=== PATIENT | male | born 1960 | race African-American/Black ===

== ENCOUNTER 2017-07-05 04:11 | Inpatient (IN) | payer SELFPAY ==
[2017-07-05 04:38] LABS: #Basophils 0.1 thou/uL (0.0-0.2); #Eosinphils 0.1 thou/uL (0.0-0.7); #Lymphocytes 1.9 thou/uL (1.20-3.40); #Monocytes 0.9 thou/uL (0.11-0.59); #Neutrophils 6.6 thou/uL (1.40-6.50); %Basophils 0.5 % (0.0-1.0); %Eosinophils 0.6 % (0.0-10.0); %Monocytes 9.4 % (0.0-10.0); %Neutrophils 69.5 % (42.0-75.0); Hemoglobin 14.6 g/dL (14.0-18.0); Mean Corpuscular HGB CONC 33.7 g/dL (32.0-36.0); Mean Corpuscular Hemoglobin 32.2 pg (27.0-31.0); Mean Corpuscular Volume 95.4 fl (80.0-94.0); Mean Platelet Volume 6.8 fL (7.4-10.4); Platelet Count 365 thou/uL (130-400); RBC Distribution Width 11.7 % (11.5-14.5); Red Blood Cell (RBC) Count 4.53 mill/uL (4.70-6.10); White Blood Cell (WBC) Count 9.5 thou/uL (4.8-10.8)
[2017-07-05 04:59] LABS: ALT (SGPT) 20 U/L (8-55); AST (SGOT) 25 U/L (5-34); Albumin 4.1 g/dL (3.5-5.0); Alkaline Phosphatase 79 U/L (40-150); Anion Gap 16 mmol/L (10-20); BUN (Urea Nitrogen) 21 mg/dL (8.4-25.7); Bilirubin, Total 0.3 mg/dL (0.2-1.2); CK (CPK) 1277 U/L (30-200); Calc. Creatinine Clearance 0 mL/min (70-130); Calcium 9.7 mg/dL (7.8-10.44); Carbon Dioxide 20 mmol/L (22-29); Chloride 107 mmol/L (98-107); Estimated GFR-MDRD 71; Globulin 3.6 g/dL (2.4-3.5); Glucose 105 mg/dL (70-105); Potassium 4.1 mmol/L (3.5-5.1); Protein, Total 7.7 g/dL (6.0-8.3); Sodium 139 mmol/L (136-145)
[2017-07-05 05:05] LABS: CKMB 3.8 ng/mL (0-6.6); Troponin I 0.064 ng/mL (< 0.028)
[2017-07-05] MEDS ORDERED: Ondansetron HCl/PF 4 MG/2 ML Vial IVP PRN (06:44)
[2017-07-05] MEDS ORDERED: Ondansetron ODT 4 MG TAB SL PRN (06:44)
[2017-07-05 08:04] LABS: Troponin I 0.061 ng/mL (< 0.028)
[2017-07-05] MEDS ORDERED: Acetaminophen 325 MG TAB PO PRN (08:22)
[2017-07-05] MEDS ORDERED: HYDROcodone/Acetaminophen 5/325 mg Tablet PO PRN (08:22)
--- NOTE | 2017-07-05 08:25 | RAD ---
UPRIGHT PORTABLE CHEST 1 VIEW: Date: 07/05/17 HISTORY: 56-year-old male with history of shortness of breath for several days. History of congestive heart fa ilure. COMPARISON: 01/02/17. FINDINGS: Monitor leads overlie the chest. Heart size is within upper range of normal limits. No confluent pneu monia, overt edema, or pleural effusion. IMPRESSION: No significant acute intrathoracic disease. Stable from prior 01/02/17 study. Stable metal opacity in the region of the anterior right chest. POS: CHRISSY
[2017-07-05] MEDS ORDERED: cefTRIAXone\\ROCEPHIN 1 GM in Sodium Chloride 0.9% 100 ML IVPB SCH (08:30)
[2017-07-05] MEDS ORDERED: Aspirin 325 MG TAB PO SCH (09:00)
[2017-07-05 09:04] VITALS: BMI 29.9
[2017-07-05] MEDS: Spironolactone 25 MG TAB PO SCH (09:22)
[2017-07-05] MEDS: Lisinopril 2.5 MG TAB PO SCH (09:22)
[2017-07-05] MEDS: Docusate 100 MG CAP PO SCH ×2 (09:22→20:42)
[2017-07-05] MEDS: cefTRIAXone\\ROCEPHIN 1 GM, Syringe 0.4 ML in Sterile Water 9.6 ML SLOW IVP SCH (09:33)
[2017-07-05] MEDS: Azithromycin 500 MG in Sodium Chloride 0.9% 250 ML 250 ML IVPB SCH (09:34)
[2017-07-05] MEDS: Benzonatate 100 MG CAP PO PRN ×3 (10:01→20:41)
[2017-07-05] MEDS: Diabetic Tussin 200 MG/10 ML UDCUP PO PRN ×3 (10:01→20:41)
[2017-07-05 10:02] LABS: Bilirubin Negative (Negative); Blood, Urine Negative (Negative); Clarity CLEAR (Clear); Glucose, Urine (Dipstick) Negative (Negative); Leukocyte Negative (Negative); Nitrite Negative (Negative); Protein, Urine (Dipstick) Trace mg/dL (Neg-Trace); pH, Urine 5.5 (5.0-9.0)
[2017-07-05 10:04] LABS: Bacteria/HPF None Seen HPF (None Seen); Hyaline Casts/LPF 0-3 HYALINE CAST LPF (0-3 Hyaline); RBC/HPF 0-3 HPF (0-3); Squamous Epithelial 0-3 HPF (0-3); WBC/HPF 0-3 HPF (0-3)
[2017-07-05 10:20] LABS: Amphetamine Not Detected (NotDetected); Barbiturates Screen Not Detected (NotDetected); Benzodiazepine Screen Not Detected (NotDetected); Cocaine Metabolite Screen Detected (NotDetected); Medtox Control Line Valid? VALID (VALID); Medtox Reader # READER 4; Methadone Not Detected (NotDetected); Methamphetamine Not Detected (NotDetected); Opiate Screen Not Detected (NotDetected); Oxycodone Screen Not Detected (NotDetected); Phencyclidine (PCP) Not Detected (NotDetected); THC/Cannabinoid Screen Detected (NotDetected); Tricyclic Screen Not Detected (NotDetected)
[2017-07-05 11:20] LABS: Troponin I 0.063 ng/mL (< 0.028)
--- NOTE | 2017-07-05 14:21 | CON ---
DATE OF CONSULTATION: 07/05/2017 REASON FOR CONSULTATION: Acute on chronic systolic heart failure and cocaine use. PRIMARY FIREMAN: Dr. Hardik Lim is the primary body press operator. HISTORY OF PRESENT ILLNESS: Mr. Mendes is a 56-year-old gentleman who recently presented with incre ased shortness of breath. He states he has been noted over the last week. He has had PND and orthop hugo as well as lower extremity edema. No chest pain or pressure noted. His last echo noted in the h ospital was had an EF of 20% to 25%. PAST MEDICAL HISTORY: Hypertension, hyperlipidemia, nonischemic cardiomyopathy. ALLERGIES: None. CURRENT MEDICATIONS: None. MEDICATIONS: Clonidine, atenolol, Lasix, lisinopril. REVIEW OF SYSTEMS: Ten-point review of systems is reviewed and is as above negative. PHYSICAL EXAMINATION: VITAL SIGNS: Blood pressure 149/91, pulse 92, temperature 98.6. GENERAL: Patient is a pleasant male who is in no acute distress. The patient appears his stated age. VITAL SIGNS: NEUROLOGIC: The patient is alert and oriented times 3 with no focal neurologic deficits. HEENT: Sclerae without icterus. Mouth has moist mucous membranes with normal pallor. NECK: No JVD. Carotid upstroke brisk. No bruits bilaterally. LUNGS: Crackles noted bilaterally. BACK: No scoliosis or kyphosis. CARDIAC: Regular rate and rhythm with normal S1 and S2. No S3 or S4 noted. No significant rubs, murmurs, thrills, or gallops noted throughout the precordium. PMI is not displaced. There is no parasternal heave. ABDOMEN: Soft, nontender, nondistended. No peritoneal signs present. No hepatosplenomegaly. No abnormal striae. EXTREMITIES: 2+ femoral and 2+ dorsalis pedis pulses. No cyanosis, clubbing, or edema. SKIN: No gross abnormalities. PERTINENT LABORATORY DATA: Hemoglobin 14.6, CO2 of 20, CK-MB of 3.8, troponin 0.064. BNP 122. IMPRESSION: 1. Acute on chronic systolic heart failure. 2. Cocaine use. RECOMMENDATIONS: Mr. Ramírez BNP is not markedly elevated, but his symptoms suggest heart failure. We would continue with IV Lasix. We would discontinue aspirin. Continue with lisinopril and luisa nolactone. I also discussed ICD with Mr. Mendes. He is somewhat receptor. We will have further di scussions tomorrow.
[2017-07-05] MEDS: Furosemide 20 MG/2 ML VIAL SLOW IVP SCH (15:06)
--- NOTE | 2017-07-05 19:20 | HP ---
CHIEF COMPLAINT: Shortness of breath and chest pain. HISTORY OF PRESENT ILLNESS: This is a 56-year-old pleasant gentleman who came into the hospital afte r doing some cocaine with shortness of breath and some chest pain. The patient says that he has been coughing on and off for the whole week, which has gotten worse. Shortness of breath has gotten wors e too. He has a history of congestive heart failure. Denies any asthma. The patient came into the hospital for further evaluation and treatment of that. PAST MEDICAL HISTORY: Significant for hyperlipidemia, high cholesterol, hypertension, coronary arter y disease, congestive heart failure with ejection fraction of 20%. PAST SURGICAL HISTORY: Four pins in the right hand. PSYCHIATRIC HISTORY: No previous psychiatric history. SOCIAL HISTORY: Denies alcohol use. The patient currently uses drugs. He smokes cocaine. No histo ry of tobacco use. ALLERGIES: No known drug allergies. FAMILY HISTORY: Negative for diabetes and hypertension. MEDICATIONS: Include lisinopril 2.5 p.o. daily and Lasix 40 mg p.o. daily. REVIEW OF SYSTEMS: Significant for shortness of breath, some chest pain, otherwise no fever, no chil ls, no headache, no eye pain, no hearing loss, no latencies. Positive for cough without any sputum p roduction. No diarrhea, dysuria, or polyuria. No memory or mood changes, no neck pain. PHYSICAL EXAMINATION: VITAL SIGNS: Blood pressure is 141/85, pulse 102, breathing comfortably on room air. GENERAL: The patient is lying in bed in no apparent distress. When he came to the emergency room; h owever, his O2 sats were 94% on room air and he was tachypneic. HEENT: Atraumatic, normocephalic. Pupils equal, round, react to light. Extraoculars movements inta ct. Mucous membranes moist. NECK: No JVD. LUNGS: Breath sounds heard, dependent crackles heard some coarse breath sounds. CARDIOVASCULAR: S1, S2 normal. No murmurs or gallops appreciated. ABDOMEN: Soft, obese. EXTREMITIES: No cyanosis, clubbing, edema. Distal pulses present. NEUROLOGIC: . LABORATORY DATA: Ejection fraction in the past was 20%. CK is 1277, troponin 0.061. ASSESSMENT AND PLAN: 1. Chest pain, rule out acute coronary syndrome. We will trend troponins. Consult Cardiology. Moriah estrada for status elevated. I will repeat echocardiogram. 2. Rhabdomyolysis with elevated CK. We will follow CK this hospital stay. 3. Cocaine use. We will ask consult the patient and will do the need for. 4. Cough with chest x-ray suggestive of pneumonia. We will put the patient on pneumonia protocol, t reat with IV antibiotics. Check for the flu and do sputum culture. We will give symptomatic treatme nt for the cough. 5. Hypertension, stable. 6. Hyperlipidemia, stable. I will follow the patient and make recommendations as the clinical cours e evolves.
[2017-07-06 05:29] LABS: #Basophils 0.1 thou/uL (0.0-0.2); #Eosinphils 0.1 thou/uL (0.0-0.7); #Lymphocytes 2.6 thou/uL (1.20-3.40); #Monocytes 0.9 thou/uL (0.11-0.59); #Neutrophils 4.5 thou/uL (1.40-6.50); %Basophils 1.1 % (0.0-1.0); %Eosinophils 1.3 % (0.0-10.0); %Lymphocytes 31.9 % (21.0-51.0); %Neutrophils 54.7 % (42.0-75.0); Hemoglobin 14.5 g/dL (14.0-18.0); Mean Corpuscular HGB CONC 33.2 g/dL (32.0-36.0); Mean Corpuscular Hemoglobin 31.7 pg (27.0-31.0); Mean Corpuscular Volume 95.5 fl (80.0-94.0); Mean Platelet Volume 6.7 fL (7.4-10.4); Platelet Count 357 thou/uL (130-400); RBC Distribution Width 11.7 % (11.5-14.5); Red Blood Cell (RBC) Count 4.56 mill/uL (4.70-6.10); White Blood Cell (WBC) Count 8.2 thou/uL (4.8-10.8)
[2017-07-06 05:40] LABS: Anion Gap 12 mmol/L (10-20); BUN (Urea Nitrogen) 24 mg/dL (8.4-25.7); CK (CPK) 811 U/L (30-200); Calc. Creatinine Clearance 86 mL/min (70-130); Calcium 10.1 mg/dL (7.8-10.44); Carbon Dioxide 26 mmol/L (22-29); Chloride 106 mmol/L (98-107); Estimated GFR-MDRD 69; Glucose 111 mg/dL (70-105); Potassium 4.4 mmol/L (3.5-5.1); Sodium 140 mmol/L (136-145)
[2017-07-06] MEDS: Furosemide 20 MG/2 ML VIAL SLOW IVP SCH (06:00)
[2017-07-06] MEDS: Diabetic Tussin 200 MG/10 ML UDCUP PO PRN (06:24)
[2017-07-06] MEDS: Benzonatate 100 MG CAP PO PRN (06:24)
[2017-07-06] MEDS: Lisinopril 2.5 MG TAB PO SCH (08:47)
[2017-07-06] MEDS: Spironolactone 25 MG TAB PO SCH (08:47)
[2017-07-06] MEDS: Azithromycin 500 MG in Sodium Chloride 0.9% 250 ML 250 ML IVPB SCH (09:30)
[2017-07-06] MEDS: Docusate 100 MG CAP PO SCH ×2 (09:53→20:16)
[2017-07-06] MEDS: cefTRIAXone\\ROCEPHIN 1 GM, Syringe 0.4 ML in Sterile Water 9.6 ML SLOW IVP SCH (09:53)
--- NOTE | 2017-07-06 12:22 | PDOC.PN ---
- Subjective Encounter Start Date: 07/06/17 Encounter Start Time: 12:21 Patient seen and examined. No new complaints. No overnight events - Objective MAR Reviewed: Yes Vital Signs & Weight: Vital Signs (12 hours) Temp Pulse Resp BP BP Pulse Ox 07/06/17 08:47 62 115/65 07/06/17 07:52 97.3 F L 62 16 115/65 96 07/06/17 05:59 51 L 16 121/80 07/06/17 04:00 97.9 F 97 20 133/67 93 L Weight Weight 208 lb 6.4 oz I&O: 07/05/17 07/06/17 07/07/17 06:59 06:59 06:59 Intake Total 1860 Output Total 420 Balance 1440 Result Diagrams: 07/06/17 05:03 07/06/17 05:04 Phys Exam - Physical Examination Constitutional: NAD HEENT: PERRLA Neck: no JVD Respiratory: no rales Cardiovascular: no significant murmur Gastrointestinal: no distention Musculoskeletal: pulses present Neurological: moves all 4 limbs Psychiatric: A&O x 3 Dx/Plan (1) Polysubstance abuse Code(s): F19.10 - OTHER PSYCHOACTIVE SUBSTANCE ABUSE, UNCOMPLICATED Status: Acute (2) Systolic CHF, acute on chronic Code(s): I50.23 - ACUTE ON CHRONIC SYSTOLIC (CONGESTIVE) HEART FAILURE Status : Acute (3) CKD (chronic kidney disease) stage 2, GFR 60-89 ml/min Code(s): N18.2 - CHRONIC KIDNEY DISEASE, STAGE 2 (MILD) Status: Chronic (4) H/O: HTN (hypertension) Code(s): Z86.79 - PERSONAL HISTORY OF OTHER DISEASES OF THE CIRCULATORY SYSTEM Status: Chronic - Plan * doing good * continue diuresis * f/u dr sanz plan for icd
[2017-07-06] MEDS: Furosemide 40 MG/4 ML VIAL SLOW IVP SCH (12:30)
[2017-07-07 05:15] LABS: #Eosinphils 0.1 thou/uL (0.0-0.7); #Lymphocytes 2.5 thou/uL (1.20-3.40); #Neutrophils 5.2 thou/uL (1.40-6.50); %Basophils 0.6 % (0.0-1.0); %Lymphocytes 27.9 % (21.0-51.0); %Monocytes 11.1 % (0.0-10.0); %Neutrophils 59.5 % (42.0-75.0); Hemoglobin 14.4 g/dL (14.0-18.0); Mean Corpuscular HGB CONC 34.9 g/dL (32.0-36.0); Mean Corpuscular Hemoglobin 33.2 pg (27.0-31.0); Mean Corpuscular Volume 94.9 fl (80.0-94.0); Mean Platelet Volume 7.1 fL (7.4-10.4); Platelet Count 328 thou/uL (130-400); RBC Distribution Width 11.7 % (11.5-14.5); Red Blood Cell (RBC) Count 4.33 mill/uL (4.70-6.10); White Blood Cell (WBC) Count 8.8 thou/uL (4.8-10.8)
[2017-07-07 05:30] LABS: Anion Gap 14 mmol/L (10-20); BUN (Urea Nitrogen) 32 mg/dL (8.4-25.7); CK (CPK) 624 U/L (30-200); Calc. Creatinine Clearance 77 mL/min (70-130); Calcium 9.9 mg/dL (7.8-10.44); Carbon Dioxide 21 mmol/L (22-29); Chloride 109 mmol/L (98-107); Estimated GFR-MDRD 61; Glucose 141 mg/dL (70-105); Sodium 140 mmol/L (136-145)
[2017-07-07] MEDS: Furosemide 40 MG/4 ML VIAL SLOW IVP SCH ×2 (05:38→12:47)
[2017-07-07] MEDS: cefTRIAXone\\ROCEPHIN 1 GM, Syringe 0.4 ML in Sterile Water 9.6 ML SLOW IVP SCH (08:56)
[2017-07-07] MEDS: Lisinopril 2.5 MG TAB PO SCH (08:57)
[2017-07-07] MEDS: Spironolactone 25 MG TAB PO SCH (08:57)
[2017-07-07] MEDS: Docusate 100 MG CAP PO SCH ×2 (08:57→20:09)
[2017-07-07] MEDS: Diabetic Tussin 200 MG/10 ML UDCUP PO PRN ×2 (09:04→20:09)
[2017-07-07] MEDS: Azithromycin 500 MG in Sodium Chloride 0.9% 250 ML 250 ML IVPB SCH (10:38)
--- NOTE | 2017-07-07 14:29 | PDOC.CTH ---
<Agueda Scruggs - Last Filed: 07/07/17 14:31> Cardiology Progress Note - Subjective The pt seen and examined. No overnight events. No cardiac complaints. No distress or SOB with RA. No edema - Objective Vital Signs Temp Pulse Resp BP BP Pulse Ox 07/07/17 11:45 98.5 F 100 18 110/71 96 07/07/17 08:50 98.5 F 100 18 97 07/07/17 08:48 97.5 F L 94 18 131/74 97 07/07/17 04:00 107 H 18 127/65 Weight 203 lb 5 oz 07/06/17 07/07/17 07/08/17 06:59 06:59 06:59 Intake Total 1860 960 Output Total 420 1000 Balance 1440 -40 - Physical Examination General/Neuro: alert & oriented x3 Neck: no JVD present Lungs: CTA Heart: RRR Abdomen: soft Extremities: other: (No edema) - Telemetry Telemetry Rhythm: SR 90s - Labs Result Diagrams: 07/07/17 04:49 07/07/17 04:49 Troponin/CKMB CK-MB (CK-2) 3.8 ng/mL (0-6.6) 07/05/17 04:20 Troponin I 0.063 ng/mL (< 0.028) H 07/05/17 10:24 - Assessment/Plan 1. Acute on Chronic Systolic HF - Echo on 07/05/17 showed EF 25-30%, Grade II diastolic dysfunction, mild-mod MR and mild TR; on Lasix and WANDA; start low dose of Coreg; Possible AICD placement tomorrow; cont. monitor 2. HTN - stable with current medication 3. Acute on CKD - change Lasix 40mg BID IV to PO; cont. monitor 4. Polysubstance abuse - MAR reviewed * Possible AICD placement tomorrow by Dr Mast Review of Systems - Review of Systems Constitutional: reports: no symptoms reported EENTM: reports: no symptoms reported Respiratory: reports: no symptoms reported Cardiac (ROS): reports: no symptoms reported ABD/GI: reports: no symptoms reported : reports: no symptoms reported Musculoskeletal: reports: no symptoms reported Skin: reports: no symptoms reported <Tonya Lim - Last Filed: 07/07/17 18:39> Cardiology Progress Note - Objective Vital Signs Temp Pulse Pulse Pulse Resp BP BP 07/07/17 15:40 98 F 115 H 20 07/07/17 11:45 98.5 F 100 18 07/07/17 11:03 107 H 111 H 116/78 116/55 L 07/07/17 08:50 98.5 F 100 18 07/07/17 08:48 97.5 F L 94 18 BP Pulse Ox Pulse Ox Pulse Ox 07/07/17 15:40 98/56 L 95 07/07/17 11:45 110/71 96 07/07/17 11:03 96 98 07/07/17 08:50 97 07/07/17 08:48 131/74 97 Weight 203 lb 5 oz 07/06/17 07/07/17 07/08/17 06:59 06:59 06:59 Intake Total 1860 960 840 Output Total 420 1000 2125 Balance 1440 -40 -1285 - Labs Result Diagrams: 07/07/17 04:49 07/07/17 04:49 Troponin/CKMB CK-MB (CK-2) 3.8 ng/mL (0-6.6) 07/05/17 04:20 Troponin I 0.063 ng/mL (< 0.028) H 07/05/17 10:24 - Assessment/Plan Pt. seen and eval. by me. I saw this pt. 4 years ago and he has not followed up since that time. He was advised a Life-Vest at that time but I do not think he agreed to it. He continues to abuse cocaine every other day per his own admission. He is not a good candidate for an AICD since he is noncompliant. At this time he has not been seen by EP as far as I can tell. I believe it would be best to apply a Life Vest and see if the pt will return for follow up. He needs to be compliant with medications and see if the EF will improve. If not better in 90 days then an AICD would be reasonable in my opinion. I agree with the remainder of the A/P by the OPERATIONS DISPATCHER.
--- NOTE | 2017-07-07 17:30 | PDOC.PN ---
- Subjective Encounter Start Date: 07/07/17 Encounter Start Time: 17:29 Patient seen and examined. No new complaints. No overnight events - Objective MAR Reviewed: Yes Vital Signs & Weight: Vital Signs (12 hours) Temp Pulse Pulse Pulse Resp BP BP 07/07/17 15:40 98 F 115 H 20 07/07/17 11:45 98.5 F 100 18 07/07/17 11:03 107 H 111 H 116/78 116/55 L 07/07/17 08:50 98.5 F 100 18 07/07/17 08:48 97.5 F L 94 18 BP Pulse Ox Pulse Ox Pulse Ox 07/07/17 15:40 98/56 L 95 07/07/17 11:45 110/71 96 07/07/17 11:03 96 98 07/07/17 08:50 97 07/07/17 08:48 131/74 97 Weight Weight 203 lb 5 oz I&O: 07/06/17 07/07/17 07/08/17 06:59 06:59 06:59 Intake Total 1860 960 Output Total 420 1000 Balance 1440 -40 Result Diagrams: 07/07/17 04:49 07/07/17 04:49 Phys Exam - Physical Examination Constitutional: NAD HEENT: PERRLA Neck: no JVD Respiratory: no wheezing Cardiovascular: no significant murmur Gastrointestinal: non-tender Musculoskeletal: pulses present Neurological: moves all 4 limbs Psychiatric: A&O x 3 Dx/Plan (1) Polysubstance abuse Code(s): F19.10 - OTHER PSYCHOACTIVE SUBSTANCE ABUSE, UNCOMPLICATED Status: Acute (2) Systolic CHF, acute on chronic Code(s): I50.23 - ACUTE ON CHRONIC SYSTOLIC (CONGESTIVE) HEART FAILURE Status : Acute (3) CKD (chronic kidney disease) stage 2, GFR 60-89 ml/min Code(s): N18.2 - CHRONIC KIDNEY DISEASE, STAGE 2 (MILD) Status: Chronic (4) H/O: HTN (hypertension) Code(s): Z86.79 - PERSONAL HISTORY OF OTHER DISEASES OF THE CIRCULATORY SYSTEM Status: Chronic - Plan * 1. Acute on Chronic Systolic HF - Echo on 07/05/17 showed EF 25-30%, Grade II diastolic dysfunction, mild-mod MR and mild TR; on Lasix and WANDA; start low dose of Coreg; Possible AICD placement tomorrow; cont. monitor 2. HTN - stable with current medication 3. Acute on CKD - change Lasix 40mg BID IV to PO; cont. monitor 4. Polysubstance abuse -
[2017-07-07] MEDS: Carvedilol 3.125 MG TAB PO SCH (17:40)
--- NOTE | 2017-07-07 23:06 | CON ---
ELECTROPHYSIOLOGY CONSULTATION REPORT DATE OF CONSULTATION: 07/07/2017 REFERRING PHYSICIAN: Osmani Brown M.D. I am seeing Mr. Mendes at [facility] as an electrophysiology advanced manufacturing consultant for the following p roblems: 1. Chronic systolic congestive heart failure with nonischemic cardiomyopathy. A. Remote history of reduced LVEF at baseline echocardiogram in 11/29/2014, LVEF 20% to 25%. Nuclea r stress test from 06/06/2013 with LVEF of 20% to 25% without ischemia or scar and most recent echo t his admission on 07/05/2017 with LVEF of 25% to 30%. 2. Prior history of LifeVest use. 3. History of cocaine use. 4. Nonsustained ventricular arrhythmias. 5. Coronary artery receptors. A. Hypertension. B. Hyperlipidemia. ALLERGIES: None noted. MEDICATIONS AT HOME: Including lisinopril and furosemide. SUBJECTIVE: Mr. Mendes is here with progressive dyspnea. He also had some chest pain, although it was associated with cocaine use. He had some cough, which was getting worse and he was evaluated in the hospital. Hence his chest pains, Cardiology was consulted and subsequently I was consulted for f mehnazther EP evaluation. Currently, he is not having any chest pains. No PND, orthopnea. No lower extremity edema. No fever , chills or cough. No stroke-like symptoms. No neurological deficits. REVIEW OF SYSTEMS: The rest of the 12-point review of systems otherwise unremarkable. PAST MEDICAL HISTORY: As above. SOCIAL HISTORY: The patient is active cocaine user. He uses marijuana. FAMILY HISTORY: Noncontributory. OBJECTIVE DATA: VITAL SIGNS: Blood pressure is 116/55, heart rate 107, respirations 18, temperature 98.5 degrees Fah renheit. GENERAL: He is alert and oriented man in no apparent distress. NECK: Supple. Jugular veins are not distended. CHEST: Coarse without crackles. CARDIOVASCULAR: Heart sounds are regular to rate and rhythm. No murmur or gallop. ABDOMEN: Benign. Bowel sounds positive. EXTREMITIES: Lower extremities without edema, clubbing or cyanosis. DATABASE: EKGs reviewed reveals sinus rhythm with a narrow complex QRS noted. ASSESSMENT AND PLAN: Mr. Mendes is a 56-year-old man with history of congestive heart failure and n onischemic cardiomyopathy, this could be possibly related to cocaine use. The left ventricular eject ion fraction is persistently low. He has elevated ventricular arrhythmia risk. I discussed with him the option of ICD. At the same time, I also noted his history of cocaine use. Further discussion r egarding this is necessary. He clearly needs to quit cocaine use to qualify for ICD implant. Risks and benefits detailed. I will reevaluate him tomorrow after discussion with Dr. Lim for treating ph ysician.
[2017-07-08] MEDS ORDERED: Furosemide 20 MG TAB PO SCH (09:00)
[2017-07-08] MEDS: Lisinopril 2.5 MG TAB PO SCH (09:30)
[2017-07-08] MEDS: Spironolactone 25 MG TAB PO SCH (09:31)
[2017-07-08] MEDS: Azithromycin 500 MG in Sodium Chloride 0.9% 250 ML 250 ML IVPB SCH (09:32)
[2017-07-08] MEDS: Carvedilol 3.125 MG TAB PO SCH (09:32)
[2017-07-08] MEDS: Docusate 100 MG CAP PO SCH (09:32)
[2017-07-08 10:15] VITALS: TEMP 98.1
[2017-07-08] MEDS: cefTRIAXone\\ROCEPHIN 1 GM, Syringe 0.4 ML in Sterile Water 9.6 ML SLOW IVP SCH (10:54)
--- NOTE | 2017-07-08 11:34 | PDOC.CTH ---
Cardiology Progress Note - Subjective Pt. seen and eval. No cardiac complaints. Cough is better. He does not want to wear the Life-Vest and may not be compliant if he did agree to wear it. He wants to continue medical treatment and see if the EF improves. - Objective Vital Signs Temp Pulse Resp BP BP BP Pulse Ox 07/08/17 09:30 83 109/62 07/08/17 08:00 98.1 F 105 H 17 109/62 96 07/08/17 04:00 97.8 F 83 21 H 114/53 L 95 Weight 206 lb 07/07/17 07/08/17 07/09/17 06:59 06:59 06:59 Intake Total 960 840 240 Output Total 1000 2125 Balance -40 -1285 240 - Physical Examination General/Neuro: alert & oriented x3 Neck: carotid US brisk Lungs: CTA Heart: RRR Abdomen: NT/ND, soft - Labs Result Diagrams: 07/07/17 04:49 07/07/17 04:49 Troponin/CKMB CK-MB (CK-2) 3.8 ng/mL (0-6.6) 07/05/17 04:20 Troponin I 0.063 ng/mL (< 0.028) H 07/05/17 10:24 - Assessment/Plan . Acute on Chronic Systolic HF - Echo on 07/05/17 showed EF 25-30%, nonischemic CMY, Grade II diastolic dysfunction, mild-mod MR and mild TR; on Lasix and WANDA; low dose of Coreg; 2. HTN - stable with current medication 3. Acute on CKD - cont. Lasix 40mg BID PO; cont. monitor 4. Polysubstance abuse -He continues to use cocaine on a routine basis. Will need to be careful with the betablockers with the continued cocaine use. 5. noncompliant with meds and followup. i discussed a Life-Vest with the pt. he does not want to wear this. He says that he will try the medications. if the EF improves with medical treatment then I will continue that. If the EF does not improve after 90 days then he would be a candidate for an AICD if he stops cocaine. i will be happy to see him in the clinic in the next 2-3 weeks or he can follow up in the CHF clinic. 6. cough: Improved. MARSHA reviewed
--- NOTE | 2017-07-08 11:57 | PDOC.PN ---
- Subjective Encounter Start Date: 07/08/17 Encounter Start Time: 11:54 Patient seen and examined. No new complaints. No overnight events - Objective MAR Reviewed: Yes Vital Signs & Weight: Vital Signs (12 hours) Temp Pulse Resp BP BP BP Pulse Ox 07/08/17 09:30 83 109/62 07/08/17 08:00 98.1 F 105 H 17 109/62 96 07/08/17 04:00 97.8 F 83 21 H 114/53 L 95 Weight Weight 206 lb I&O: 07/07/17 07/08/17 07/09/17 06:59 06:59 06:59 Intake Total 960 840 240 Output Total 1000 2125 Balance -40 -1285 240 Result Diagrams: 07/07/17 04:49 07/07/17 04:49 Phys Exam - Physical Examination Constitutional: NAD HEENT: PERRLA Neck: no JVD Respiratory: no wheezing Cardiovascular: no significant murmur Gastrointestinal: non-tender Musculoskeletal: pulses present Neurological: moves all 4 limbs Psychiatric: A&O x 3 Dx/Plan (1) Polysubstance abuse Code(s): F19.10 - OTHER PSYCHOACTIVE SUBSTANCE ABUSE, UNCOMPLICATED Status: Acute (2) Systolic CHF, acute on chronic Code(s): I50.23 - ACUTE ON CHRONIC SYSTOLIC (CONGESTIVE) HEART FAILURE Status : Acute (3) CKD (chronic kidney disease) stage 2, GFR 60-89 ml/min Code(s): N18.2 - CHRONIC KIDNEY DISEASE, STAGE 2 (MILD) Status: Chronic (4) H/O: HTN (hypertension) Code(s): Z86.79 - PERSONAL HISTORY OF OTHER DISEASES OF THE CIRCULATORY SYSTEM Status: Chronic - Plan doing well refused life vest no icd till he stops using cocaine d/c with f/u with dr ayala
[2017-07-08 15:44] VITALS: BP 127/63
--- NOTE | 2017-07-08 15:53 | PRG ---
DATE OF SERVICE: 07/08/2017 ELECTROPHYSIOLOGY FOLLOWUP NOTE REFERRING PHYSICIAN: Dr. Lim. SUBJECTIVE: Mr. Mendes seems doing well today, no further complaints of dyspnea, palpitations, or chest pains noted. OBJECTIVE: VITAL SIGNS: Blood pressure is 114/53, heart rate 83, respiration is 21, temperature 97.8 degrees Fahrenheit. GENERAL: He is alert and oriented man, in no apparent distress. NECK: Supple. Jugular veins not distended. CHEST: Coarse, no crackles. CARDIOVASCULAR: Heart sounds are regular to rate and rhythm. No murmur or gallop. ABDOMEN: Benign. Bowel sounds positive. EXTREMITIES: Lower extremities without edema, clubbing or cyanosis. DATABASE: Telemetry strips reviewed revealing sinus rhythm, occasional PVCs. ASSESSMENT AND PLAN: Mr. Mendes is a 56-year-old man with prior history of congestive heart failure, nonischemic cardiomyopathy and chronic cocaine abuse. He has had poor compliance with medical therapy. I discussed the case with Dr. Lim, her usual treating physician. We agreed that hence the active documented drug abuse at this point, he clearly does not qualify for a prophylactic ICD implant. On the other hand, plans are to resume standard medical therapy. He has refused LifeVest in the past. I will see him back in the office as per Dr. Lim if felt that his compliance improves and quits drug abuse. Thank you. MARII
--- NOTE | 2017-07-08 23:06 | DIS ---
DATE OF ADMISSION: 07/05/2017 DATE OF DISCHARGE: 07/08/2017 DISCHARGE DIAGNOSES: 1. Acute on chronic systolic congestive heart failure with ejection fraction of 25%. 2. Cocaine use. 3. Hyperlipidemia. 4. Hypertension. 5. Coronary artery disease. 6. Rhabdomyolysis. 7. The patient also complained of chest pain. DISCHARGE MEDICATIONS: Include Coreg 3.125 p.o. b.i.d., aspirin 81 mg p.o. daily, lisinopril 2.5 p.o . daily, spironolactone 12.5 p.o. daily and Lasix 40 mg p.o. b.i.d. in addition to other home medicat ions. CONSULTANTS ON THE CASE: Cardiology. BRIEF HOSPITAL COURSE: This is a 56-year-old pleasant gentleman who came in with systolic congestive heart failure exacerbation getting shortness of breath because of cocaine use and noncompliance wit h medication. Cardiology was consulted. They did an echo which showed EF of 20%. Dr. Mast was also consulted for possible ICD placement, evaluated the patient and said that patient has to be cocaine free before ICD can be implanted. The patient has refused LifeVest for now, he is medically optimize d, he is no longer short of breath, and he is doing well. He is asked to stop using cocaine and foll ow up with Dr. Lim as an outpatient. He is right now medically stable to be discharged. He is aske d to come back to the emergency room in case symptoms recur. Total time for this discharge took 35 minutes.
--- NOTE | 2017-07-19 19:59 | EKG ---
Test Reason : Blood Pressure : / mmHG Vent. Rate : 106 BPM Atrial Rate : 106 BPM P-R Int : 138 ms QRS Dur : 114 ms QT Int : 370 ms P-R-T Axes : 034 057 081 degrees QTc Int : 491 ms Sinus tachycardia with frequent Premature ventricular complexes Left atrial enlargement T wave abnormality, consider lateral ischemia Abnormal ECG Confirmed by REECE VERAS, PAZ Samaniego ([id number]), editor school photograph JASON SUGGS ([id number]) on 07/19/2017 7:59:07 PM Referred By: Confirmed By:PAZ NEWELL MD
== END 2017-07-08 14:20 | disposition home or self-care (01) | DRG 292 ==
LOC: ERS 04:11 → 2NO 06:33
PROVIDERS: ADMIT Internal Medicine; ATTEND Internal Medicine
DX: I11.0 Hypertensive heart disease with heart failure (principal); M62.82 Rhabdomyolysis; N17.9 Acute kidney failure, unspecified; I08.1 Rheumatic disorders of both mitral and tricuspid valves; I50.23 Acute on chronic systolic (congestive) heart failure; E78.5 Hyperlipidemia, unspecified; F14.10 Cocaine abuse, uncomplicated; I25.10 Atherosclerotic heart disease of native coronary artery without angina pectoris; R07.9 Chest pain, unspecified; Z91.14 Patient's other noncompliance with medication regimen; I25.5 Ischemic cardiomyopathy
CPT/HCPCS: 36415; 71045; 80048; 80053; 80306; 81001; 82550; 82553; 83880; 84484; 85025; 87040; 87070; 87205; 87804; 93005; 93306; 93798; 94640; 94760; A4216; J0456; J0696; J1940; J7050; J7620

== ENCOUNTER 2018-04-04 16:21 | Observation (INO) | payer SELFPAY ==
[2018-04-04] MEDS ORDERED: Aspirin 325 MG TAB ONE (17:15)
[2018-04-04 18:16] LABS: Troponin I 0.011 ng/mL (< 0.028)
[2018-04-04 18:39] VITALS: BMI 28.4
[2018-04-04] MEDS ORDERED: Ondansetron HCl/PF 4 MG/2 ML Vial IVP PRN (18:51)
[2018-04-04] MEDS ORDERED: Ondansetron ODT 4 MG TAB SL PRN (18:51)
[2018-04-04] MEDS ORDERED: Acetaminophen 325 MG TAB PO PRN (18:51)
[2018-04-04 20:46] LABS: Troponin I 0.013 ng/mL (< 0.028)
--- NOTE | 2018-04-04 20:51 | HP ---
CHIEF COMPLAINT: Shortness of breath. HISTORY OF PRESENT ILLNESS: Patient is a 57-year-old male who was admitted here back in June. At that time, the patient had some dyspnea. He was worked up and had an echocardiogram which revealed an ejection fraction of around 20%-25%. The patient had been actively using cocaine and therefore wa s not a candidate to have an AICD placement at the time and he also reports that he also had refused at that time to wear the LifeVest. The patient was on lisinopril and Lasix; however, had been incarc erated and has not been able to get access to his usual medications. Over the last 3 days, he has re ported some heaviness in his chest as well as dyspnea on exertion with even trying to walk across the length of himself. He therefore presented to the emergency department today. He initially presente d at [facility]. There, he was found to have evidence of congestive heart failure and was given 80 mg of IV Lasix. He reports that he has voided significantly and is already starting to feel signific antly better. PAST MEDICAL HISTORY: As noted above, significant for the cardiomyopathy which is presumably related to the cocaine use. EF was 20%-25%. He has history of hypertension, hyperlipidemia and coronary ar chan disease, although I do not know whether that has been confirmed. PAST SURGICAL HISTORY: Has four pins in his right hand. SOCIAL HISTORY: The patient reported that he did not use any drugs in months. ALLERGIES: None. FAMILY HISTORY: Negative for coronary disease, diabetes or hypertension. REVIEW OF SYSTEMS: The patient reports that he has had some cough and some mild frothy sputum produc tion. No fevers or chills and otherwise remainder of a 10-system review was unremarkable except for those things mentioned in the history of present illness. CURRENT MEDICATIONS: Lisinopril 2.5 mg 1 p.o. b.i.d. and Lasix 40 mg 1 p.o. q.a.m. PHYSICAL EXAMINATION: GENERAL APPEARANCE: Age appropriate male. He is in no distress. He is awake, alert, oriented, plea kalyan, cooperative, appears quite comfortable. HEENT: PERRL. No OP lesions. NECK: Supple and symmetric. CARDIOVASCULAR: Regular rate and rhythm without murmurs, gallops or rubs. LUNGS: Clear to auscultation bilaterally with good chest wall expansion and air exchange. ABDOMEN: Soft, nontender, nondistended, positive bowel sounds. No masses or organomegaly. EXTREMITIES: Warm and dry. LABORATORY DATA AND IMAGING DATA: White count 5.2, hemoglobin 14.3, platelets 285 monocytes 11.8, eo sinophils 1.1, basophils 2.1. Sodium 142, potassium 4.8, chloride 110, CO2 is 21, BUN 19, creatinine is 1.18. BNP 1329. Troponin 0.18 and subsequent 0.011. Chest x-ray, mild cardiomegaly with bilate ral vascular congestion. IMPRESSION AND PLAN: 1. Decompensated systolic congestive heart failure. The patient has an ejection fraction of 20%-25% . He was incarcerated and somehow got off of his medications there. He has been bonded it out and marixa manriquez is now here in the hospital and has received 80 mg of IV Lasix through the emergency department, he is diuresed and is already feeling some better. We will keep him on telemetry tonight. Continue to check the serial enzymes for his underlying chest pressure, which I suspect is only related to the p ulmonary edema. If he does well overnight, anticipate we will be able to discharge him to home with his usual home medications to have outpatient Cardiology followup. 2. Cardiomyopathy. The patient was not previously a candidate for the AICD because of his cocaine u se. He has been off of that for a while and he will need to consider following up with Cardiology to consider whether he is a candidate at this time or not. We will also discuss the LifeVest again wit h him prior to discharge. 3. Hypertension. We will resume his usual lisinopril dose.
[2018-04-05 05:15] LABS: Anion Gap 13 mmol/L (10-20); BUN (Urea Nitrogen) 22 mg/dL (8.4-25.7); Calc. Creatinine Clearance 92 mL/min (70-130); Carbon Dioxide 23 mmol/L (22-29); Chloride 108 mmol/L (98-107); Estimated GFR-MDRD 80; Glucose 84 mg/dL (70-105); Potassium 3.6 mmol/L (3.5-5.1); Sodium 140 mmol/L (136-145)
[2018-04-05] MEDS ORDERED: Furosemide 40 MG/4 ML VIAL SLOW IVP SCH (08:45)
--- NOTE | 2018-04-05 08:47 | PDOC.PN ---
- Subjective Encounter Start Date: 04/05/18 Encounter Start Time: 08:30 Subjective: follow up for new admission yesterday pm -: for CHF exacerbation/dyspnea - Objective Resuscitation Status: Resuscitation Status FULL:Full Resuscitation MAR Reviewed: Yes Vital Signs & Weight: Vital Signs (12 hours) Temp Pulse Resp BP Pulse Ox 04/05/18 08:12 97.7 F 86 20 131/95 H 97 04/05/18 04:00 98.6 F 79 24 H 122/83 95 04/04/18 23:44 98.5 F 84 24 H 114/74 96 Weight Weight 90.945 kg I&O: 04/04/18 04/05/18 04/06/18 06:59 06:59 06:59 Intake Total 480 Output Total 475 Balance 480 -475 Result Diagrams: 04/05/18 04:13 Phys Exam - Physical Examination HEENT: PERRLA, moist MMs, sclera anicteric Neck: no nodes, no JVD, full ROM Respiratory: clear to auscultation bilateral Cardiovascular: RRR Gastrointestinal: soft, non-tender, no distention, positive bowel sounds Musculoskeletal: no edema, pulses present, edema present Neurological: non-focal, normal sensation, moves all 4 limbs Lymphatic: no nodes Psychiatric: normal affect, A&O x 3 Skin: no rash, normal turgor, cap refill <2 seconds Dx/Plan (1) CHF (congestive heart failure) Code(s): I50.9 - HEART FAILURE, UNSPECIFIED Status: Acute (2) H/O: HTN (hypertension) Code(s): Z86.79 - PERSONAL HISTORY OF OTHER DISEASES OF THE CIRCULATORY SYSTEM Status: Chronic - Plan -: patient reports he is feeling better today but still mildly SOB -: Will give him Lasix 40mg IVP this morning and reassess -: Awaiting his home med list from family -: If feeling better, may go home today w/ Outpt Cardiology consult * .
[2018-04-05] MEDS ORDERED: Lisinopril 5 MG TAB PO SCH ×2 (10:45→13:15)
[2018-04-05 10:50] LABS: HBSAg Index 0.16 S/CO (0-0.99); HIV (1/2) Antibody/Antigen Non-Reactive (NonReactive); HIV 1/2 INDEX 0.22 S/CO (<1.00); Hep A IgM AB Non-Reactive (NonReactive); Hep A IgM S/CO 0.12 S/CO (0-0.79); Hep B Surf Ag Non-Reactive S/CO (NonReactive); Hep C IgG Ab Non-Reactive (NonReactive); Hepatitis B Core IGM Abs Non-Reactive (NonReactive)
[2018-04-05 10:58] LABS: Syphilis Antibody Index 4.97 S/CO (<1.00 Non-Reactive)
--- NOTE | 2018-04-05 10:59 | PDOC.EVN ---
Event Note - Event Note Event Note: I have examined, reviewed all hx, labs and radiographs and discussed patient with Samantha NETTLES regarding admission for CHF exacerbation. Tx with Lasix and overall clinically stabilized. Medication noncompliance an issue and establishing consistent follow up posada to successful mgmt of CHF. Currently lungs are clear bilaterally, heart S1, S2 regular without murmurs, no peripheral edema. Plan for discharge home today and establishing outpt follow up and referral to CHF clinic.
[2018-04-05 12:05] VITALS: BP 109/80; TEMP 97.9
[2018-04-05] MEDS ORDERED: Furosemide 20 MG TAB PO SCH (14:00)
[2018-04-05] MEDS ORDERED: Carvedilol 3.125 MG TAB PO SCH (17:00)
[2018-04-05 18:26] LABS: Syphilis Antibody INDETERMINATE (Nonreactive); Syphilis Titer Non-Reactive (Negative)
[2018-04-06] MEDS ORDERED: Lisinopril 5 MG TAB PO SCH (09:00)
--- NOTE | 2018-04-06 09:19 | DIS ---
DATE OF ADMISSION: 04/04/2018 DATE OF DISCHARGE: 04/05/2018 PRIMARY CARE PHYSICIAN: None. CONSULTATIONS: None. PROCEDURES: He had a chest x-ray done in the ER, which showed cardiomegaly and bilateral vascular co ngestion. PHYSICAL EXAMINATION: Vital signs on discharge 97.9, pulse is 88, respirations 16, pulse ox 100% on room air, blood pressure 109/80. HISTORY OF PRESENT ILLNESS: I saw the patient this morning prior to discharge. See the hospital not e from today. ALLERGIES: He has no known allergies. HOME MEDICATIONS: He will continue his home medications of Coreg 3.125 mg p.o. b.i.d., Lasix 40 mg p .o. at 0900 hours and 1400 hours daily, lisinopril 2.5 mg p.o. daily. No new meds were added on this hospital visit. HOSPITAL COURSE: A 57-year-old male who presented to the [place] ED yesterday for shortness of breath and heaviness in his chest. The patient has a history of congestive heart failure with an EF of 20- 25% on the last echo done in 06/2017. At that time in [place], the chest x-ray, labs, and clinical im pression were consistent with decompensated systolic congestive heart failure. The patient was sent to this ER for admission. The patient has a history of cocaine abuse, but reports he has not been us ing in the last 4 months. He reports he was incarcerated recently and reports not taking his Lasix o r Coreg or lisinopril consistently. An option of a LifeVest was discussed again on this hospital vis it and the patient declined. The patient reports no currently any funding for an AICD placement. Th e patient did request on this visit for some STD testing, HIV, hepatitis panel, syphilis, GC, and chl amydia were ordered. Hepatitis panel and HIV were nonreactive. Syphilis, RPR, GC, and chlamydia are pending. The patient was given 80 mg of Lasix yesterday in the ER and again 40 mg again this mornin g. The patient states he is feeling much better, much less short of breath, has no peripheral edema, has no rales. Clinically, vital signs are clinically stable and so we felt comfortable sending him home. His medications will be continued and has been instructed to follow up with the [facility] within the next week. He will need follow up to talk about potentially the LifeVest or AICD and also follow up for the remaining STD testing. DISCHARGE CONDITION: Stable. DISPOSITION: Home. FOLLOWUP: Follow up [facility] within the next week.
[2018-04-08 01:41] LABS: Chlamydia by PCR Not Detected (NotDetected); GC by PCR Not Detected (NotDetected)
--- NOTE | 2018-04-11 10:48 | EKG ---
Test Reason : CHF TRANSFER Blood Pressure : / mmHG Vent. Rate : 079 BPM Atrial Rate : 079 BPM P-R Int : 146 ms QRS Dur : 106 ms QT Int : 440 ms P-R-T Axes : 054 065 149 degrees QTc Int : 504 ms Normal sinus rhythm Left atrial enlargement Incomplete right bundle branch block Prolonged QT Abnormal ECG Inferior/anterior T wave inversions seen on old EKG from 07/05/2017 Confirmed by NORBERTO RIVERA ([id number]), script editor GRACE STOCK ([id number]) on 04/11/2018 10:48:06 AM Referred By: Confirmed By:NORBERTO RIVERA
== END 2018-04-05 13:41 | disposition home or self-care (01) ==
LOC: ERS 16:21 → INTOOBSV 17:00 → 2SE 17:00
PROVIDERS: ADMIT Internal Medicine; ATTEND Internal Medicine
DX: R07.89 Other chest pain (principal); I11.0 Hypertensive heart disease with heart failure; I50.21 Acute systolic (congestive) heart failure; I43 Cardiomyopathy in diseases classified elsewhere; E78.5 Hyperlipidemia, unspecified; I25.10 Atherosclerotic heart disease of native coronary artery without angina pectoris; F14.11 Cocaine abuse, in remission; Z79.899 Other long term (current) drug therapy
CPT/HCPCS: 36415; 80048; 80074; 86593; 86780; 87389; 87491; 87591; 90471; 90686; 93005; 96374; G0008; G0378; J1940

== ENCOUNTER 2020-01-06 15:50 | Inpatient (IN) | payer OTHER, SELFPAY ==
[2020-01-06 17:01] LABS: Actual Bicarbonate (HCO3a) 23.1 mEq/L (22-28); Analyzer IN Cardio ER; Base Excess (BEa) -0.1 mEq/L (-2.0 to +3.0); CO2 Tension 33.5 mmHg (35.0-45.0); Calcium, Ionized (arterial) 1.11 mmol/L (1.12-1.30); Carboxyhemoglobin (COHb) 0.3 gm% (0.0-3.0); O2 Tension (PaO2), arterial 72.9 mmHg (80.0-100.0); Potassium - ABG Lab 4.14 mmol/L (3.70-5.30); pH, Arterial 7.46 (7.35-7.45)
[2020-01-06 17:04] LABS: #Monocytes 0.6 thou/uL (0.11-0.59); %Basophils 0.3 % (0.0-1.0); %Eosinophils 0.3 % (0.0-10.0); %Lymphocytes 14.7 % (21.0-51.0); %Monocytes 9.1 % (0.0-10.0); %Neutrophils 75.6 % (42.0-75.0); Hemoglobin 13.8 g/dL (14.0-18.0); Mean Corpuscular HGB CONC 33.7 g/dL (32.0-36.0); Mean Corpuscular Hemoglobin 30.6 pg (27.0-31.0); Mean Corpuscular Volume 90.9 fL (78.0-98.0); Mean Platelet Volume 7.2 fL (7.4-10.4); Platelet Count 314 thou/uL (130-400); RBC Distribution Width 12.1 % (11.5-14.5); White Blood Cell (WBC) Count 6.6 thou/uL (4.8-10.8)
[2020-01-06 17:05] LABS: ALV-art Gradient 241.725 (0-20); Puncture Site LRA
--- NOTE | 2020-01-06 17:25 | RAD ---
PORTABLE CHEST: 01/06/20 HISTORY: Shortness of breath. Positive COVID. COMPARISON: 01/01/20. There are now bilateral hazy infiltrates seen in the periphery of both lungs. There is mild vascular engorgement. Borderline cardiomegaly. IMPRESSION: Hazy ground glass type infiltrates are now seen in both lungs. POS: AGW
[2020-01-06 17:29] LABS: ALT (SGPT) 29 U/L (8-55); AST (SGOT) 42 U/L (5-34); Albumin 3.4 g/dL (3.5-5.0); Alkaline Phosphatase 60 U/L (40-110); Anion Gap 13 mmol/L (10-20); BUN (Urea Nitrogen) 20 mg/dL (8.4-25.7); Bilirubin, Total 0.6 mg/dL (0.2-1.2); Calc. Creatinine Clearance 0 mL/min (70-130); Carbon Dioxide 22 mmol/L (22-29); Chloride 102 mmol/L (98-107); Estimated GFR-MDRD 65; Globulin 3.1 g/dL (2.4-3.5); Glucose 105 mg/dL (70-105); Potassium 4.3 mmol/L (3.5-5.1); Protein, Total 6.5 g/dL (6.0-8.3); Sodium 133 mmol/L (136-145)
[2020-01-06 17:46] LABS: CKMB 0.8 ng/mL (0-6.6)
[2020-01-06] MEDS ORDERED: Ondansetron PF 4 MG/2 ML Vial IVP PRN (17:49)
[2020-01-06 18:10] LABS: D-Dimer Test 0.94 *mcg/mL (0.27-0.43)
[2020-01-06 18:20] LABS: INR-International Normal Ratio 1.1; Prothrombin Time 13.8 sec (12.0-14.7)
[2020-01-06] MEDS ORDERED: Dexamethasone 10 MG/ML VIAL ONE (19:18)
[2020-01-06] MEDS ORDERED: Azithromycin 500 MG VIAL ONE (19:18)
[2020-01-06] MEDS ORDERED: cefTRIAXone\\ROCEPHIN 1 GM VIAL ONE (19:18)
[2020-01-06] MEDS ORDERED: Aspirin 325 MG TAB ONE (19:18)
[2020-01-06 20:37] VITALS: BMI 29.9
[2020-01-06 20:56] LABS: CKMB 0.9 ng/mL (0-6.6)
[2020-01-06] MEDS: Heparin 5,000 UNITS/ML VIAL SC SCH (23:21)
--- NOTE | 2020-01-07 01:11 | HP ---
CHIEF COMPLAINT: Shortness of breath. HISTORY OF PRESENT ILLNESS: The patient is a 59-year-old male with past medical history of CHF, who was recently discharged from [facility] after being managed for COVID-19. It appears that the patient was diagnosed with COVID-19 on the 31 of December. The patient stated that after being discharged home, he started experiencing worsening shortness of breath, which has reached to the point where he is unable to participate in his normal daily activities, which prompted him to present to the ER. In the ED, the patient was found to be hypoxic requiring high-flow nasal cannula at FIO2 60% to maintain O2 saturation greater than 90%. The patient denies chest pain, nausea, vomiting, palpitations , or dizziness. REVIEW OF SYSTEMS: Negative except as noted in HPI. PAST MEDICAL HISTORY: As noted above. PAST SURGICAL HISTORY: Surgery involving his right hand. SOCIAL HISTORY: The patient endorses occasional alcohol intake and he is a former cocaine user. PHYSICAL EXAMINATION: GENERAL: The patient is alert and oriented x3. HEENT: Head is normocephalic and atraumatic. Extraocular muscles are intact. NECK: Supple. CARDIOVASCULAR: Examination revealed regular rate and rhythm. LUNGS: Crackles bilaterally on pulmonary exam. NEUROLOGIC: Revealed normal cranial nerves 2 through 12 and no focal deficits. ASSESSMENT: 1. Acute respiratory failure with hypoxia. 2. COVID-19 pneumonia. 3. History of congestive heart failure. PLAN: 1. The patient will be placed in the medical unit. 2. Start dexamethasone 6 mg orally daily. 3. Start heparin 5000 units subcutaneously q.8 hours for DVT prophylaxis. 4. We will consult ID for possibly starting remdesivir. Job ID: [id number] [facility]
[2020-01-07 05:23] LABS: #Lymphocytes 0.6 thou/uL (1.20-3.40); #Monocytes 0.3 thou/uL (0.11-0.59); #Neutrophils 3.8 thou/uL (1.40-6.50); %Basophils 0.1 % (0.0-1.0); %Lymphocytes 13.5 % (21.0-51.0); %Monocytes 6.2 % (0.0-10.0); %Neutrophils 80.1 % (42.0-75.0); Hemoglobin 13.3 g/dL (14.0-18.0); Mean Corpuscular Hemoglobin 30.2 pg (27.0-31.0); Mean Corpuscular Volume 91.6 fL (78.0-98.0); Mean Platelet Volume 7.5 fL (7.4-10.4); Platelet Count 321 thou/uL (130-400); RBC Distribution Width 12.2 % (11.5-14.5); Red Blood Cell (RBC) Count 4.39 mill/uL (4.70-6.10); White Blood Cell (WBC) Count 4.8 thou/uL (4.8-10.8)
[2020-01-07 05:28] LABS: Anion Gap 13 mmol/L (10-20); BUN (Urea Nitrogen) 20 mg/dL (8.4-25.7); Calc. Creatinine Clearance 116 mL/min (70-130); Calcium 8.8 mg/dL (7.8-10.44); Carbon Dioxide 21 mmol/L (22-29); Chloride 105 mmol/L (98-107); Estimated GFR-MDRD Greater than 90; Glucose 210 mg/dL (70-105); Potassium 4.5 mmol/L (3.5-5.1); Sodium 134 mmol/L (136-145)
[2020-01-07] MEDS: Heparin 5,000 UNITS/ML VIAL SC SCH ×3 (08:09→20:03)
[2020-01-07] MEDS: Dexamethasone 4 MG TAB PO SCH (08:09)
[2020-01-07] MEDS: Furosemide 40 MG TAB PO SCH ×2 (08:09→15:45)
[2020-01-07] MEDS: Carvedilol 3.125 MG TAB PO SCH ×2 (08:09→17:09)
--- NOTE | 2020-01-07 13:24 | PDOC.HOSPP ---
- Subjective Encounter Date: 01/07/20 Subjective: No evidence of respiratory distress today. Tolerating HFNC. - Objective Vital Signs & Weight: Vital Signs (12 hours) Temp Pulse Resp BP Pulse Ox 01/07/20 13:10 98.3 F 74 32 H 95/53 L 93 L 01/07/20 08:15 98.1 F 75 36 H 103/59 L 95 01/07/20 03:40 97.9 F 69 25 H 94/57 L 95 Weight Admit Weight 209 lb Weight 209 lb I&O: 01/06/20 01/07/20 01/08/20 06:59 06:59 06:59 Intake Total 120 Output Total 300 Balance -180 Result Diagrams: 01/07/20 04:48 01/07/20 04:48 Hospitalist ROS - Medication Medications: Active Medications Generic Name Dose Route Start Last Admin Trade Name Freq PRN Reason Stop Dose Admin Carvedilol 3.125 mg 01/07/20 08:00 01/07/20 08:09 Coreg PO 3.125 mg BID-WM NANDO Administration Dexamethasone 6 mg 01/07/20 08:00 01/07/20 08:09 Decadron PO 6 mg QAM-WM NANDO Administration Furosemide 40 mg 01/07/20 09:00 01/07/20 08:09 Lasix PO 40 mg 0900,1400 NANDO Administration Heparin Sodium (Porcine) 5,000 units 01/06/20 21:00 01/07/20 08:09 Heparin SC 5,000 units TID NANDO Administration - Exam General Appearance: awake alert Neck: supple Heart: RRR Respiratory: normal chest expansion, no tachypnea Extremities: no cyanosis Neurological: cranial nerve grossly intact, no focal deficits Hosp A/P (1) Acute respiratory failure with hypoxia Code(s): J96.01 - ACUTE RESPIRATORY FAILURE WITH HYPOXIA Status: Acute (2) COVID-19 virus infection Code(s): U07.1 - COVID-19 Status: Acute (3) CKD (chronic kidney disease) stage 2, GFR 60-89 ml/min Code(s): N18.2 - CHRONIC KIDNEY DISEASE, STAGE 2 (MILD) Status: Chronic - Plan The patient is maintaining good oxygen saturations on 50% high flow nasal cannula. He is on dexamethasone. Discussed his case with ID and Rimdazivir was recommended. The benefits and risks of the treatment were discussed with the patient and his consent was obtained to initiate the medication.
[2020-01-07] MEDS ORDERED: REMDESIVIR (EUA) 200 MG in Sodium Chloride 0.9% 250 ML 210 ML IV SCH (14:00)
[2020-01-07] MEDS: Acetaminophen 325 MG TAB PO PRN (20:26)
[2020-01-08 04:54] LABS: #Lymphocytes 1.4 thou/uL (1.20-3.40); #Monocytes 1.1 thou/uL (0.11-0.59); #Neutrophils 8.7 thou/uL (1.40-6.50); %Eosinophils 0.2 % (0.0-10.0); %Lymphocytes 12.7 % (21.0-51.0); %Monocytes 9.4 % (0.0-10.0); %Neutrophils 77.7 % (42.0-75.0); Hemoglobin 12.5 g/dL (14.0-18.0); Mean Corpuscular HGB CONC 33.2 g/dL (32.0-36.0); Mean Corpuscular Hemoglobin 30.1 pg (27.0-31.0); Mean Corpuscular Volume 90.8 fL (78.0-98.0); Mean Platelet Volume 7.3 fL (7.4-10.4); Platelet Count 411 thou/uL (130-400); RBC Distribution Width 12.1 % (11.5-14.5); Red Blood Cell (RBC) Count 4.14 mill/uL (4.70-6.10); White Blood Cell (WBC) Count 11.2 thou/uL (4.8-10.8)
[2020-01-08 05:11] LABS: Anion Gap 12 mmol/L (10-20); BUN (Urea Nitrogen) 20 mg/dL (8.4-25.7); Calc. Creatinine Clearance 113 mL/min (70-130); Calcium 8.8 mg/dL (7.8-10.44); Carbon Dioxide 23 mmol/L (22-29); Chloride 105 mmol/L (98-107); Estimated GFR-MDRD Greater than 90; Glucose 125 mg/dL (70-105); Potassium 4.3 mmol/L (3.5-5.1); Sodium 136 mmol/L (136-145)
[2020-01-08 05:12] LABS: ALT (SGPT) 35 U/L (8-55); AST (SGOT) 32 U/L (5-34); Alkaline Phosphatase 58 U/L (40-110); Bilirubin, Direct 0.2 mg/dL (0.1-0.3); Bilirubin, Total 0.2 mg/dL (0.2-1.2); Protein, Total 6.4 g/dL (6.0-8.3)
[2020-01-08] MEDS: Heparin 5,000 UNITS/ML VIAL SC SCH ×3 (08:12→20:26)
[2020-01-08] MEDS: Furosemide 40 MG TAB PO SCH (08:12)
[2020-01-08] MEDS: Dexamethasone 4 MG TAB PO SCH (08:12)
[2020-01-08] MEDS: Carvedilol 3.125 MG TAB PO SCH ×2 (08:12→17:18)
--- NOTE | 2020-01-08 12:03 | PDOC.HOSPP ---
- Subjective Encounter Date: 01/08/20 Encounter Time: 10:40 Subjective: feels better on high flow, is lying to lateral side no chest pain or nausea is tolerating oral diet - Objective Vital Signs & Weight: Vital Signs (12 hours) Temp Pulse Resp BP Pulse Ox 01/08/20 08:20 98.2 F 78 28 H 110/71 100 01/08/20 04:45 98.1 F 70 28 H 104/61 95 01/08/20 00:07 98.1 F 80 28 H 120/69 98 Weight Admit Weight 209 lb Weight 209 lb I&O: 01/07/20 01/08/20 01/09/20 06:59 06:59 06:59 Intake Total 120 1830 Output Total 300 1450 Balance -180 380 Result Diagrams: 01/08/20 04:40 01/08/20 04:40 Hospitalist ROS - Medication Medications: Active Medications Generic Name Dose Route Start Last Admin Trade Name Freq PRN Reason Stop Dose Admin Acetaminophen 650 mg 01/06/20 17:49 01/07/20 20:26 Tylenol PO 650 mg Q4H PRN Administration Headache/Fever/Mild Pain (1-3) Carvedilol 3.125 mg 01/07/20 08:00 01/08/20 08:12 Coreg PO 3.125 mg BID-WM NANDO Administration Dexamethasone 6 mg 01/07/20 08:00 01/08/20 08:12 Decadron PO 6 mg QAM-WM NANDO Administration Furosemide 40 mg 01/07/20 09:00 01/08/20 08:12 Lasix PO 40 mg 0900,1400 NANDO Administration Heparin Sodium (Porcine) 5,000 units 01/06/20 21:00 01/08/20 08:12 Heparin SC 5,000 units TID NANDO Administration - Exam General Appearance: awake alert Eye: PERRL, anicteric sclera ENT: no oropharyngeal lesions, moist mucosa Neck: supple, no JVD Heart: RRR, no murmur Respiratory: no wheezes, no rales, rhonchi Gastrointestinal: soft, non-tender, non-distended, normal bowel sounds Extremities: no cyanosis, no edema Neurological: cranial nerve grossly intact, no focal deficits Psychiatric: normal affect, A&O x 3 Hosp A/P (1) Acute respiratory failure with hypoxia Code(s): J96.01 - ACUTE RESPIRATORY FAILURE WITH HYPOXIA Status: Acute (2) Pneumonia due to COVID-19 virus Code(s): U07.1 - COVID-19; J12.89 - OTHER VIRAL PNEUMONIA Status: Acute (3) HTN (hypertension) Code(s): I10 - ESSENTIAL (PRIMARY) HYPERTENSION Status: Chronic Qualifiers: Hypertension type: essential hypertension Qualified Code(s): I10 - Essential (primary) hypertension (4) Obesity (BMI 30.0-34.9) Code(s): E66.9 - OBESITY, UNSPECIFIED Status: Chronic - Plan is on high flow oxgyen, may taper to nasal canula if spo2 is >90% continue remdesivir, steroids, inhaler and lasix (may scale it back to daily) hemostable to ambulate in the room as tolerated
[2020-01-08] MEDS: REMDESIVIR (EUA) 100 MG in Sodium Chloride 0.9% 250 ML 230 ML IV SCH (15:14)
[2020-01-09 05:43] LABS: ALT (SGPT) 36 U/L (8-55); AST (SGOT) 28 U/L (5-34); Alkaline Phosphatase 54 U/L (40-110); Bilirubin, Direct 0.2 mg/dL (0.1-0.3); Bilirubin, Total 0.3 mg/dL (0.2-1.2); Protein, Total 6.4 g/dL (6.0-8.3)
[2020-01-09] MEDS: Heparin 5,000 UNITS/ML VIAL SC SCH ×3 (08:44→19:30)
[2020-01-09] MEDS: Furosemide 40 MG TAB PO SCH ×2 (08:44→11:14)
[2020-01-09] MEDS: Carvedilol 3.125 MG TAB PO SCH ×3 (08:44→16:54)
[2020-01-09] MEDS: Dexamethasone 4 MG TAB PO SCH (08:44)
--- NOTE | 2020-01-09 10:54 | PDOC.HOSPP ---
- Subjective Encounter Date: 01/09/20 Encounter Time: 09:30 Subjective: is on high flow, has trouble breathing no chest pain, has cough ate last night well, didn't like his breakfast - Objective Vital Signs & Weight: Vital Signs (12 hours) Temp Pulse Resp BP BP Pulse Ox 01/09/20 08:50 98.6 F 69 20 94/64 96 01/09/20 05:45 98.5 F 67 28 H 116/53 L 95 01/08/20 23:46 98.3 F 69 28 H 103/67 96 Weight Admit Weight 209 lb Weight 209 lb I&O: 01/08/20 01/09/20 01/10/20 06:59 06:59 06:59 Intake Total 1830 1460 Output Total 1450 300 Balance 380 1160 Result Diagrams: 01/08/20 04:40 01/08/20 04:40 Hospitalist ROS - Medication Medications: Active Medications Generic Name Dose Route Start Last Admin Trade Name Freq PRN Reason Stop Dose Admin Acetaminophen 650 mg 01/06/20 17:49 01/07/20 20:26 Tylenol PO 650 mg Q4H PRN Administration Headache/Fever/Mild Pain (1-3) Carvedilol 3.125 mg 01/07/20 08:00 01/08/20 17:18 Coreg PO 3.125 mg BID-WM NANDO Administration Dexamethasone 6 mg 01/07/20 08:00 01/09/20 08:44 Decadron PO 6 mg QAM-WM NANDO Administration Heparin Sodium (Porcine) 5,000 units 01/06/20 21:00 01/09/20 08:44 Heparin SC 5,000 units TID NANDO Administration REMDESIVIR (EUA) 100 mg/ 250 mls @ 250 mls/hr 01/08/20 15:00 01/08/20 15:14 Sodium Chloride IV 01/11/20 15:59 250 mls Q24H NANDO Administration - Exam General Appearance: awake alert Eye: PERRL, anicteric sclera ENT: no oropharyngeal lesions, moist mucosa Neck: supple, no JVD Heart: RRR, no murmur Respiratory: no wheezes, no rales, rhonchi Gastrointestinal: soft, non-tender, non-distended, normal bowel sounds Extremities: no cyanosis, no edema Neurological: cranial nerve grossly intact, no focal deficits Psychiatric: normal affect, A&O x 3 Hosp A/P (1) Acute respiratory failure with hypoxia Code(s): J96.01 - ACUTE RESPIRATORY FAILURE WITH HYPOXIA Status: Acute (2) Pneumonia due to COVID-19 virus Code(s): U07.1 - COVID-19; J12.89 - OTHER VIRAL PNEUMONIA Status: Acute (3) HTN (hypertension) Code(s): I10 - ESSENTIAL (PRIMARY) HYPERTENSION Status: Chronic Qualifiers: Hypertension type: essential hypertension Qualified Code(s): I10 - Essential (primary) hypertension (4) Obesity (BMI 30.0-34.9) Code(s): E66.9 - OBESITY, UNSPECIFIED Status: Chronic - Plan is on high flow oxgyen, attempts to wean was unsuccesfull. continue remdesivir, steroids, inhaler and lasix daily hemostable to ambulate in the room as tolerated He tries to lie on lateral sides, encourage to ambulate in room/exercise on bed
--- NOTE | 2020-01-09 11:48 | RAD ---
EXAM: Single view of the chest HISTORY: Covid pneumonia COMPARISON: 01/06/2020 FINDINGS: Single view of the chest shows an enlarged but stable cardiomediastinal silhouette. There i s stable multifocal peripheral opacities in the lungs. Degenerative changes are seen in the spine. IMPRESSION: Stable multifocal infiltrates
[2020-01-09] MEDS: REMDESIVIR (EUA) 100 MG in Sodium Chloride 0.9% 250 ML 230 ML IV SCH (15:49)
[2020-01-09] MEDS ORDERED: Sodium Chloride 0.9% 500 ML IV SCH (17:00)
[2020-01-10 05:31] LABS: ALT (SGPT) 57 U/L (8-55); AST (SGOT) 46 U/L (5-34); Albumin 2.9 g/dL (3.5-5.0); Alkaline Phosphatase 64 U/L (40-110); Bilirubin, Direct 0.2 mg/dL (0.1-0.3); Bilirubin, Total 0.3 mg/dL (0.2-1.2); Protein, Total 6.2 g/dL (6.0-8.3)
--- NOTE | 2020-01-10 08:27 | PDOC.HOSPP ---
- Subjective Encounter Date: 01/10/20 Encounter Time: 10:30 Subjective: Patient unchanged. Still requiring high flow O2. Getting up some but does have DELGADO. Some cough. No chest pain. - Objective Vital Signs & Weight: Vital Signs (12 hours) Temp Pulse Resp BP Pulse Ox 01/10/20 08:07 97 01/10/20 03:50 98.4 F 63 23 H 99/57 L 97 Weight Admit Weight 209 lb Weight 209 lb I&O: 01/09/20 01/10/20 01/11/20 06:59 06:59 06:59 Intake Total 1460 735 Output Total 300 1020 Balance 1160 -285 Result Diagrams: 01/08/20 04:40 01/08/20 04:40 Hospitalist ROS - Review of Systems Constitutional: denies: fever, chills Respiratory: reports: cough, shortness of breath, SOB with excertion Cardiovascular: denies: chest pain Gastrointestinal: denies: nausea, vomiting, abdominal pain - Medication Medications: Active Medications Generic Name Dose Route Start Last Admin Trade Name Freq PRN Reason Stop Dose Admin Acetaminophen 650 mg 01/06/20 17:49 01/07/20 20:26 Tylenol PO 650 mg Q4H PRN Administration Headache/Fever/Mild Pain (1-3) Carvedilol 3.125 mg 01/07/20 08:00 01/09/20 16:54 Coreg PO Not Given BID-[facility] Dexamethasone 6 mg 01/07/20 08:00 01/09/20 08:44 Decadron PO 6 mg QAM-WM NANDO Administration Heparin Sodium (Porcine) 5,000 units 01/06/20 21:00 01/09/20 19:30 Heparin SC 5,000 units TID NANDO Administration REMDESIVIR (EUA) 100 mg/ 250 mls @ 250 mls/hr 01/08/20 15:00 01/09/20 15:49 Sodium Chloride IV 01/11/20 15:59 250 mls Q24H NANDO Administration - Exam General Appearance: NAD, awake alert ENT: moist mucosa Heart: RRR, no murmur, no gallops, no rubs Respiratory: CTAB, no wheezes, no rales, no ronchi Gastrointestinal: soft, non-tender, non-distended, normal bowel sounds Psychiatric: normal affect, normal behavior, A&O x 3 Hosp A/P (1) Pneumonia due to COVID-19 virus Code(s): U07.1 - COVID-19; J12.89 - OTHER VIRAL PNEUMONIA Status: Acute (2) Acute respiratory failure with hypoxia Code(s): J96.01 - ACUTE RESPIRATORY FAILURE WITH HYPOXIA Status: Acute (3) Chronic combined systolic (congestive) and diastolic (congestive) heart failure Code(s): I50.42 - CHRONIC COMBINED SYSTOLIC AND DIASTOLIC HRT FAIL Status: Chronic (4) HTN (hypertension) Code(s): I10 - ESSENTIAL (PRIMARY) HYPERTENSION Status: Chronic Qualifiers: Hypertension type: essential hypertension Qualified Code(s): I10 - Essential (primary) hypertension (5) Obesity (BMI 30.0-34.9) Code(s): E66.9 - OBESITY, UNSPECIFIED Status: Chronic (6) CKD (chronic kidney disease), stage II Code(s): N18.2 - CHRONIC KIDNEY DISEASE, STAGE 2 (MILD) Status: Chronic - Plan is on high flow oxgyen, attempts to wean was unsuccesfull. continue remdesivir, steroids, inhaler and lasix daily due to severity will switch to half full dose Lovenox hemostable EF 25-30% with grade 2/3 diastolic dysfunction on ECHO to ambulate in the room as tolerated He tries to lie on lateral sides, encourage to ambulate in room/exercise on bed
[2020-01-10] MEDS: Aspirin Chewable 81 MG TAB PO SCH (08:43)
[2020-01-10] MEDS: Enoxaparin Sodium 60 MG/0.6 ML SYRINGE SC SCH ×2 (08:44→22:15)
[2020-01-10] MEDS: Dexamethasone 4 MG TAB PO SCH (08:44)
[2020-01-10] MEDS: Carvedilol 3.125 MG TAB PO SCH ×3 (08:44→18:20)
[2020-01-10] MEDS: Acetaminophen 325 MG TAB PO PRN (09:00)
[2020-01-10] MEDS: REMDESIVIR (EUA) 100 MG in Sodium Chloride 0.9% 250 ML 230 ML IV SCH (16:22)
[2020-01-11 06:35] LABS: ALT (SGPT) 69 U/L (8-55); AST (SGOT) 39 U/L (5-34); Alkaline Phosphatase 68 U/L (40-110); Bilirubin, Direct 0.2 mg/dL (0.1-0.3); Bilirubin, Total 0.3 mg/dL (0.2-1.2); Protein, Total 6.3 g/dL (6.0-8.3)
[2020-01-11] MEDS: Dexamethasone 4 MG TAB PO SCH (09:56)
[2020-01-11] MEDS: Enoxaparin Sodium 60 MG/0.6 ML SYRINGE SC SCH ×2 (09:56→21:42)
[2020-01-11] MEDS: Carvedilol 3.125 MG TAB PO SCH ×2 (09:57→16:57)
[2020-01-11] MEDS: Aspirin Chewable 81 MG TAB PO SCH (09:57)
--- NOTE | 2020-01-11 11:53 | PDOC.HOSPP ---
- Subjective Encounter Date: 01/11/20 Encounter Time: 12:00 Subjective: Patient remains on high does O2. No changes overnight. SOB stable. No improvement per patient. - Objective Vital Signs & Weight: Vital Signs (12 hours) Temp Pulse Resp BP Pulse Ox 01/11/20 10:05 24 H 94 L 01/11/20 08:55 98.2 F 77 20 100/62 98 01/11/20 08:00 98 Weight Admit Weight 209 lb Weight 209 lb I&O: 01/10/20 01/11/20 01/12/20 06:59 06:59 06:59 Intake Total 735 800 Output Total 1020 Balance -285 800 Result Diagrams: 01/08/20 04:40 01/08/20 04:40 Hospitalist ROS - Review of Systems Constitutional: denies: fever, chills Respiratory: reports: shortness of breath, SOB with excertion. denies: cough Cardiovascular: denies: chest pain, palpitations Gastrointestinal: denies: nausea, vomiting, abdominal pain - Medication Medications: Active Medications Generic Name Dose Route Start Last Admin Trade Name Freq PRN Reason Stop Dose Admin Acetaminophen 650 mg 01/06/20 17:49 01/10/20 09:00 Tylenol PO 650 mg Q4H PRN Administration Headache/Fever/Mild Pain (1-3) Aspirin 81 mg 01/10/20 09:00 01/11/20 09:57 Aspirin Chewable PO 81 mg DAILY NANDO Administration Carvedilol 3.125 mg 01/07/20 08:00 01/11/20 09:57 Coreg PO Not Given BID-WM NANDO Dexamethasone 6 mg 01/07/20 08:00 01/11/20 09:56 Decadron PO 6 mg QAM-WM NANDO Administration Enoxaparin Sodium 50 mg 01/10/20 09:00 01/11/20 09:56 Lovenox SC 50 mg 0900,2100 NANDO Administration REMDESIVIR (EUA) 100 mg/ 250 mls @ 250 mls/hr 01/08/20 15:00 01/10/20 16:22 Sodium Chloride IV 01/11/20 15:59 250 mls Q24H NANDO Administration Ondansetron HCl 4 mg 01/06/20 17:49 01/10/20 18:27 Zofran IVP 4 mg Q6H PRN Administration Nausea/Vomiting - Exam General Appearance: NAD, awake alert ENT: moist mucosa Heart: RRR, no murmur, no gallops, no rubs Respiratory: CTAB, no wheezes, no rales, no ronchi Respiratory - other findings: decent air movement throughout Gastrointestinal: soft, non-tender, non-distended, normal bowel sounds Psychiatric: normal affect, normal behavior, A&O x 3 Hosp A/P (1) Pneumonia due to COVID-19 virus Code(s): U07.1 - COVID-19; J12.89 - OTHER VIRAL PNEUMONIA Status: Acute (2) Acute respiratory failure with hypoxia Code(s): J96.01 - ACUTE RESPIRATORY FAILURE WITH HYPOXIA Status: Acute (3) Chronic combined systolic (congestive) and diastolic (congestive) heart failure Code(s): I50.42 - CHRONIC COMBINED SYSTOLIC AND DIASTOLIC HRT FAIL Status: Chronic (4) HTN (hypertension) Code(s): I10 - ESSENTIAL (PRIMARY) HYPERTENSION Status: Chronic Qualifiers: Hypertension type: essential hypertension Qualified Code(s): I10 - Essential (primary) hypertension (5) Obesity (BMI 30.0-34.9) Code(s): E66.9 - OBESITY, UNSPECIFIED Status: Chronic (6) CKD (chronic kidney disease), stage II Code(s): N18.2 - CHRONIC KIDNEY DISEASE, STAGE 2 (MILD) Status: Chronic - Plan is on high flow oxgyen, attempt to wean was unsuccesfull. continue remdesivir, steroids, inhaler and lasix daily due to severity switched to half full dose Lovenox hemostable EF 25-30% with grade 2/3 diastolic dysfunction on ECHO to ambulate in the room as tolerated He tries to lie on lateral sides, encourage to ambulate in room/exercise on bed
[2020-01-11] MEDS: REMDESIVIR (EUA) 100 MG in Sodium Chloride 0.9% 250 ML 230 ML IV SCH (16:57)
[2020-01-11] MEDS: Acetaminophen 325 MG TAB PO PRN (21:42)
[2020-01-12 06:23] LABS: ALT (SGPT) 57 U/L (8-55); AST (SGOT) 23 U/L (5-34); Alkaline Phosphatase 81 U/L (40-110); Bilirubin, Direct 0.1 mg/dL (0.1-0.3); Bilirubin, Total 0.2 mg/dL (0.2-1.2); Protein, Total 6.3 g/dL (6.0-8.3)
[2020-01-12] MEDS: Aspirin Chewable 81 MG TAB PO SCH (07:57)
[2020-01-12] MEDS: Dexamethasone 4 MG TAB PO SCH (07:57)
[2020-01-12] MEDS: Enoxaparin Sodium 60 MG/0.6 ML SYRINGE SC SCH ×2 (07:57→20:06)
[2020-01-12] MEDS: Carvedilol 3.125 MG TAB PO SCH ×2 (07:57→17:54)
--- NOTE | 2020-01-12 08:34 | PDOC.HOSPP ---
- Subjective Encounter Date: 01/12/20 Encounter Time: 12:30 Subjective: Patient weaned down on O2 overnight to 2L NC now. - Objective Vital Signs & Weight: Weight Admit Weight 209 lb Weight 209 lb I&O: 01/11/20 01/12/20 01/13/20 06:59 06:59 06:59 Intake Total 800 600 Output Total 425 Balance 800 175 Result Diagrams: 01/08/20 04:40 01/08/20 04:40 Hospitalist ROS - Review of Systems Constitutional: denies: fever, chills Respiratory: denies: cough, shortness of breath Cardiovascular: denies: chest pain, palpitations Gastrointestinal: denies: nausea, vomiting, abdominal pain - Medication Medications: Active Medications Generic Name Dose Route Start Last Admin Trade Name Freq PRN Reason Stop Dose Admin Acetaminophen 650 mg 01/06/20 17:49 01/11/20 21:42 Tylenol PO 650 mg Q4H PRN Administration Headache/Fever/Mild Pain (1-3) Aspirin 81 mg 01/10/20 09:00 01/12/20 07:57 Aspirin Chewable PO 81 mg DAILY NANDO Administration Carvedilol 3.125 mg 01/07/20 08:00 01/12/20 07:57 Coreg PO Not Given BID-WM NANDO Dexamethasone 6 mg 01/07/20 08:00 01/12/20 07:57 Decadron PO 6 mg QAM-WM NANDO Administration Enoxaparin Sodium 50 mg 01/10/20 09:00 01/12/20 07:57 Lovenox SC 50 mg 0900,2100 NANDO Administration Ondansetron HCl 4 mg 01/06/20 17:49 01/10/20 18:27 Zofran IVP 4 mg Q6H PRN Administration Nausea/Vomiting - Exam General Appearance: NAD, awake alert ENT: moist mucosa Heart: RRR, no murmur, no gallops, no rubs Respiratory: CTAB, no wheezes, no rales, no ronchi Gastrointestinal: soft, non-tender, non-distended, normal bowel sounds Psychiatric: normal affect, normal behavior, A&O x 3 Hosp A/P (1) Pneumonia due to COVID-19 virus Code(s): U07.1 - COVID-19; J12.89 - OTHER VIRAL PNEUMONIA Status: Acute (2) Acute respiratory failure with hypoxia Code(s): J96.01 - ACUTE RESPIRATORY FAILURE WITH HYPOXIA Status: Acute (3) Chronic combined systolic (congestive) and diastolic (congestive) heart failure Code(s): I50.42 - CHRONIC COMBINED SYSTOLIC AND DIASTOLIC HRT FAIL Status: Chronic (4) HTN (hypertension) Code(s): I10 - ESSENTIAL (PRIMARY) HYPERTENSION Status: Chronic Qualifiers: Hypertension type: essential hypertension Qualified Code(s): I10 - Essential (primary) hypertension (5) Obesity (BMI 30.0-34.9) Code(s): E66.9 - OBESITY, UNSPECIFIED Status: Chronic (6) CKD (chronic kidney disease), stage II Code(s): N18.2 - CHRONIC KIDNEY DISEASE, STAGE 2 (MILD) Status: Chronic - Plan weaning down O2 well, hopeful sign of healing of infection continue steroids, inhaler and lasix daily, finished course of Remdesivir due to severity switched to half full dose Lovenox hemostable EF 25-30% with grade 2/3 diastolic dysfunction on ECHO to ambulate in the room as tolerated He tries to lie on lateral sides, encourage to ambulate in room/exercise on bed
--- NOTE | 2020-01-13 08:20 | PDOC.HOSPP ---
- Subjective Encounter Date: 01/13/20 Encounter Time: 10:30 Subjective: Patient doing well on 2L NC O2. DELGADO is improving some. No other complaints. - Objective Vital Signs & Weight: Vital Signs (12 hours) Temp Pulse Resp BP BP Pulse Ox 01/13/20 07:57 96 01/13/20 07:46 98.1 F 64 20 112/74 96 01/13/20 05:28 96 01/13/20 05:05 98.4 F 74 24 H 109/75 97 Weight Admit Weight 209 lb Weight 209 lb I&O: 01/12/20 01/13/20 01/14/20 06:59 06:59 06:59 Intake Total 600 480 Output Total 425 Balance 175 480 Result Diagrams: 01/13/20 09:56 01/13/20 09:56 Hospitalist ROS - Review of Systems Constitutional: denies: fever, chills Respiratory: reports: SOB with excertion. denies: cough, shortness of breath Cardiovascular: denies: chest pain, palpitations, orthopnea, edema Gastrointestinal: denies: nausea, vomiting, abdominal pain - Medication Medications: Active Medications Generic Name Dose Route Start Last Admin Trade Name Freq PRN Reason Stop Dose Admin Acetaminophen 650 mg 01/06/20 17:49 01/11/20 21:42 Tylenol PO 650 mg Q4H PRN Administration Headache/Fever/Mild Pain (1-3) Aspirin 81 mg 01/10/20 09:00 01/12/20 07:57 Aspirin Chewable PO 81 mg DAILY NANDO Administration Carvedilol 3.125 mg 01/07/20 08:00 01/12/20 17:54 Coreg PO Not Given BID-WM NANDO Dexamethasone 6 mg 01/07/20 08:00 01/12/20 07:57 Decadron PO 6 mg QAM-WM NANDO Administration Ondansetron HCl 4 mg 01/06/20 17:49 01/10/20 18:27 Zofran IVP 4 mg Q6H PRN Administration Nausea/Vomiting - Exam General Appearance: NAD, awake alert ENT: moist mucosa Heart: RRR, no murmur, no gallops, no rubs Respiratory: CTAB, no wheezes, no rales, no ronchi Gastrointestinal: soft, non-tender, non-distended, normal bowel sounds Extremities: no edema Psychiatric: normal affect, normal behavior, A&O x 3 Hosp A/P (1) Pneumonia due to COVID-19 virus Code(s): U07.1 - COVID-19; J12.89 - OTHER VIRAL PNEUMONIA Status: Acute (2) Acute respiratory failure with hypoxia Code(s): J96.01 - ACUTE RESPIRATORY FAILURE WITH HYPOXIA Status: Acute (3) Chronic combined systolic (congestive) and diastolic (congestive) heart failure Code(s): I50.42 - CHRONIC COMBINED SYSTOLIC AND DIASTOLIC HRT FAIL Status: Chronic (4) HTN (hypertension) Code(s): I10 - ESSENTIAL (PRIMARY) HYPERTENSION Status: Chronic Qualifiers: Hypertension type: essential hypertension Qualified Code(s): I10 - Essential (primary) hypertension (5) Obesity (BMI 30.0-34.9) Code(s): E66.9 - OBESITY, UNSPECIFIED Status: Chronic (6) CKD (chronic kidney disease), stage II Code(s): N18.2 - CHRONIC KIDNEY DISEASE, STAGE 2 (MILD) Status: Chronic - Plan weaning down O2 well, hopeful sign of healing of infection continue steroids, inhaler daily, finished course of Remdesivir due to severity switched to half full dose Lovenox- will convert to Eliquis hemostable EF 25-30% with grade 2/3 diastolic dysfunction on ECHO in 2007, pt refused life vest at that time, was supposed to reeval for possible defibrillator if he stopped cocaine, not sure his followup. Can't repeat ECHO currently due to Covid -19 BP running low normal, have been holding Carvedilol and Lasix d/c'd, will try reintroducing Lasix to ambulate in the room as tolerated He tries to lie on lateral sides, encourage to ambulate in room/exercise on bed
[2020-01-13] MEDS: Carvedilol 3.125 MG TAB PO SCH ×2 (09:03→15:57)
[2020-01-13] MEDS: Dexamethasone 4 MG TAB PO SCH (09:03)
[2020-01-13] MEDS: Aspirin Chewable 81 MG TAB PO SCH (09:03)
[2020-01-13] MEDS: Apixaban 5 MG TAB PO SCH ×2 (09:03→20:06)
[2020-01-13 10:08] LABS: Hemoglobin 12.7 g/dL (14.0-18.0); Platelet Count 684 thou/uL (130-400)
[2020-01-13 10:39] LABS: Calc. Creatinine Clearance 113 mL/min (70-130); Estimated GFR-MDRD Greater than 90
[2020-01-13] MEDS: Furosemide 40 MG TAB PO SCH (15:57)
--- NOTE | 2020-01-13 16:00 | RAD ---
EXAM: Single view of the chest HISTORY: Chest pain and shortness of breath; Covid pneumonia COMPARISON: 01/09/2020 FINDINGS: Single view of the chest shows an enlarged but stable cardiomediastinal silhouette. There i s stable scattered multifocal peripheral opacities. The bones are unremarkable IMPRESSION: Stable multifocal infiltrates
[2020-01-13 16:09] LABS: Troponin I 0.024 ng/mL (< 0.028)
[2020-01-13 23:48] LABS: Troponin I 0.019 ng/mL (< 0.028)
[2020-01-14 06:17] LABS: ALT (SGPT) 57 U/L (8-55); AST (SGOT) 24 U/L (5-34); Albumin 3.3 g/dL (3.5-5.0); Alkaline Phosphatase 81 U/L (40-110); Anion Gap 12 mmol/L (10-20); BUN (Urea Nitrogen) 20 mg/dL (8.4-25.7); Bilirubin, Total 0.2 mg/dL (0.2-1.2); Calc. Creatinine Clearance 103 mL/min (70-130); Calcium 9.7 mg/dL (7.8-10.44); Carbon Dioxide 28 mmol/L (22-29); Estimated GFR-MDRD 87; Globulin 3.6 g/dL (2.4-3.5); Glucose 116 mg/dL (70-105); Potassium 4.6 mmol/L (3.5-5.1); Protein, Total 6.9 g/dL (6.0-8.3); Sodium 137 mmol/L (136-145)
[2020-01-14 06:23] LABS: Chloride 102 mmol/L (98-107)
[2020-01-14 06:36] LABS: Hemoglobin 13.1 g/dL (14.0-18.0); Lymphocytes 22 % (21-51); MDiff Complete? YES; Mean Corpuscular Volume 93.4 fL (78.0-98.0); Mean Platelet Volume 6.8 fL (7.4-10.4); Metamyelocyte 5 % (0-0); Monocytes 8 % (0-10); Neutrophil 65 % (42-75); Platelet Count 745 thou/uL (130-400); Platelet Morphology Comment Appears Increased; RBC Distribution Width 12.7 % (11.5-14.5); Red Blood Cell (RBC) Count 4.51 mill/uL (4.70-6.10); White Blood Cell (WBC) Count 12.5 thou/uL (4.8-10.8)
--- NOTE | 2020-01-14 07:28 | PDOC.HOSPP ---
- Subjective Encounter Date: 01/14/20 Encounter Time: 11:40 Subjective: Chest pain episode yesterday after ambulating to the bathroom. EKG, CXR unchanged and Troponins all negative. Pain resolved. - Objective Vital Signs & Weight: Vital Signs (12 hours) Temp Pulse Resp BP Pulse Ox 01/13/20 20:00 98.2 F 84 20 105/70 95 Weight Admit Weight 209 lb Weight 209 lb I&O: 01/13/20 01/14/20 01/15/20 06:59 06:59 06:59 Intake Total 480 2019 Balance 480 2019 Result Diagrams: 01/14/20 05:14 01/14/20 05:14 Hospitalist ROS - Review of Systems Constitutional: denies: fever, chills Respiratory: reports: SOB with excertion. denies: cough, shortness of breath Cardiovascular: denies: palpitations Gastrointestinal: denies: nausea, vomiting, abdominal pain - Medication Medications: Active Medications Generic Name Dose Route Start Last Admin Trade Name Freq PRN Reason Stop Dose Admin Acetaminophen 650 mg 01/06/20 17:49 01/11/20 21:42 Tylenol PO 650 mg Q4H PRN Administration Headache/Fever/Mild Pain (1-3) Apixaban 5 mg 01/13/20 09:00 01/13/20 20:06 Eliquis PO 5 mg BID NANDO Administration Aspirin 81 mg 01/10/20 09:00 01/13/20 09:03 Aspirin Chewable PO 81 mg DAILY NANDO Administration Carvedilol 3.125 mg 01/07/20 08:00 01/13/20 15:57 Coreg PO 3.125 mg BID-WM NANDO Administration Dexamethasone 6 mg 01/07/20 08:00 01/13/20 09:03 Decadron PO 6 mg QAM-WM NANDO Administration Furosemide 40 mg 01/13/20 14:00 01/13/20 15:57 Lasix PO 40 mg 0900,1400 NANDO Administration Ondansetron HCl 4 mg 01/06/20 17:49 01/10/20 18:27 Zofran IVP 4 mg Q6H PRN Administration Nausea/Vomiting Sodium Chloride 10 ml 01/13/20 09:00 01/13/20 20:06 Flush - Normal Saline IVF 10 ml Q12HR NANDO Administration - Exam General Appearance: NAD, awake alert ENT: moist mucosa Heart: RRR, no murmur, no gallops, no rubs Respiratory: CTAB, no wheezes, no rales, no ronchi Gastrointestinal: soft, non-tender, non-distended, normal bowel sounds Extremities: no edema Psychiatric: normal affect, normal behavior, A&O x 3 Hosp A/P (1) Pneumonia due to COVID-19 virus Code(s): U07.1 - COVID-19; J12.89 - OTHER VIRAL PNEUMONIA Status: Acute (2) Acute respiratory failure with hypoxia Code(s): J96.01 - ACUTE RESPIRATORY FAILURE WITH HYPOXIA Status: Acute (3) Chronic combined systolic (congestive) and diastolic (congestive) heart failure Code(s): I50.42 - CHRONIC COMBINED SYSTOLIC AND DIASTOLIC HRT FAIL Status: Chronic (4) HTN (hypertension) Code(s): I10 - ESSENTIAL (PRIMARY) HYPERTENSION Status: Chronic Qualifiers: Hypertension type: essential hypertension Qualified Code(s): I10 - Essential (primary) hypertension (5) Obesity (BMI 30.0-34.9) Code(s): E66.9 - OBESITY, UNSPECIFIED Status: Chronic (6) CKD (chronic kidney disease), stage II Code(s): N18.2 - CHRONIC KIDNEY DISEASE, STAGE 2 (MILD) Status: Chronic - Plan weaning down O2 well, hopeful sign of healing of infection continue steroids (dexamethasone day 8), inhaler daily, finished course of Remdesivir due to severity switched to half full dose Lovenox- will convert to Eliquis hemostable EF 25-30% with grade 2/3 diastolic dysfunction on ECHO in 2007, pt refused life vest at that time, was supposed to reeval for possible defibrillator if he stopped cocaine, not sure his followup. Can't repeat ECHO currently due to Covid -19 BP running low normal, have been holding Carvedilol and Lasix d/c'd, reintroducing Lasix and tolerating well to ambulate in the room as tolerated He tries to lie on lateral sides, encourage to ambulate in room/exercise on bed If continues to do well can likely d/c home in 1-2 days on home oxygen. Probably should send on 2-4 weeks of Eliquis as well
[2020-01-14] MEDS: Carvedilol 3.125 MG TAB PO SCH ×2 (08:51→17:11)
[2020-01-14] MEDS: Aspirin Chewable 81 MG TAB PO SCH (08:51)
[2020-01-14] MEDS: Apixaban 5 MG TAB PO SCH ×2 (08:51→20:10)
[2020-01-14] MEDS: Furosemide 40 MG TAB PO SCH ×2 (08:51→14:30)
[2020-01-14] MEDS: Dexamethasone 4 MG TAB PO SCH (08:52)
[2020-01-15] MEDS: Aspirin Chewable 81 MG TAB PO SCH (08:11)
[2020-01-15] MEDS: Apixaban 5 MG TAB PO SCH (08:11)
[2020-01-15] MEDS: Dexamethasone 4 MG TAB PO SCH (08:11)
[2020-01-15] MEDS: Carvedilol 3.125 MG TAB PO SCH (08:11)
[2020-01-15] MEDS: Furosemide 40 MG TAB PO SCH ×2 (08:11→14:17)
--- NOTE | 2020-01-15 13:15 | DIS ---
DATE OF ADMISSION: 01/06/2020 DATE OF DISCHARGE: 01/15/2020 DISCHARGE MEDICATIONS: New medications: 1. Tylenol 650 mg every 4 hours as needed for pain or fever. 2. Eliquis 5 mg p.o. b.i.d. for 2 weeks, prescription provided. 3. Dexamethasone 6 mg p.o. daily for one day and that is tomorrow January 16, 2020. Medications to resume and these are being prescribed at discharge: 1. Carvedilol 3.125 mg p.o. b.i.d. with meals, prescription provided for 2 weeks. 2. Furosemide 40 mg p.o. b.i.d. at 0900 and 1400 daily. Prescription provided for 2 weeks. All refills will need to be provided from a primary care provider. Medication discontinued (the patient reports he ran out of this prior to admission and was not taking): Lisinopril is discontinued for now as the patient's blood pressure is on the low end of normal and we are reintroducing the carvedilol and the Lasix. This can be added back by the primary care provider. HISTORY OF PRESENT ILLNESS: Mr. Mendes is a 59-year-old male who was hospitalized from January 01 through January 03 over at [facility], discharged to home with the diagnosis of COVID pneumonia. He presented to the emergency room and was found to be hypoxic, requiring high-flow nasal cannula, FiO2 of 60%, and was admitted for acute respiratory failure with hypoxia secondary to COVID pneumonia. Of note, patient does have a history of congestive heart failure with the last echocardiogram performed in 2017 with an ejection fraction of 25-30%. HOSPITAL COURSE: The patient was treated with Decadron through this hospitalization and he has received 9 doses of planned 10 doses. He has overall done very well. He has not required oxygen since yesterday and is ambulating without low oxygen saturation levels. He does have some shortness of breath with exertion, but states it is overall improved compared to this admission. Patient's home medication of carvedilol was started on January 06 and continued throughout this hospitalization. His furosemide was resumed on January 12 and both will be prescribed at discharge. His blood pressure is on the lower side of normal, and therefore he will be discharged with only these 2 medications. He reports that he is out of these medications at home. We will prescribe a 2-week supply of these medications with encouragement to follow up with the primary care provider. He is unfunded, and I recommend either [facility] or [facility] to follow up for his medications. In addition, he will need followup with a inpatient care manager rn for the known chronic systolic heart failure. The patient's lisinopril was not restarted here, this can be added in the outpatient setting based on what his blood pressures are doing, as well as further evaluation of his heart. The patient overall improved, no longer requiring oxygen therapy, he does meet criteria for discharge to home. He will also be discharged with Eliquis for a 2-week supply and this was initiated in the hospital to help reduce the risk of thrombosis associated with COVID. PHYSICAL EXAMINATION: VITAL SIGNS: On day of discharge, blood pressure 105/76, temp 98.4, pulse 79, respirations 16, sat 96% on room air. GENERAL: Awake, alert, responsive, not in apparent distress. Able to speak in full sentences. LUNGS: Clear to auscultation. No audible wheezing, rhonchi, or rales. HEART: Normal S1, S2. Regular rate and rhythm. No significant murmur. ABDOMEN: Soft with present bowel sounds, nontender, nondistended. EXTREMITIES: No edema. KRISHNA FINDINGS AND TEST RESULTS: CBC yesterday 12.5, 13.1, 42.27, 145. On admission, INR 1.1. D-dimer 0.94. Blood gas on admission 7.46, 33.5, 72.9 with an oxygen saturation of 94%. Renal panel on admission 133, 4.3, 102 22, 21.36, 105. On January 05, T-bilirubin 0.6, AST 42, ALT 29, alkaline phosphatase 60, total protein 6.5, albumin 3.4. Troponin 0.066. CRP was 11.78, ferritin 1041. Liver function tests picked on January 09. AST 46, ALT 57. Renal panel, January 13, 137, 4.6,102, 28, 21.06, 116 with an AST of 24, ALT of 57. Blood cultures x2 from January 05, no growth. Chest x-ray on January 12, shows stable multifocal infiltrates. Chest x-ray on January 08, also stable multifocal infiltrates. Chest x-ray on January 05, hazy ground-glass type infiltrates, now seen in both lungs. DIET: Heart healthy. FLUID RESTRICTION: To whatever patient had been doing prior to this admission. ACTIVITY: As tolerated. FINAL DIAGNOSIS: 1. Acute respiratory failure secondary to coronavirus disease 2019 pneumonia. 2. History of systolic heart failure without signs of decompensation. 3. Hypertension. 4. Obesity. 5. Chronic kidney disease stage 2. FOLLOWUP: Is recommended with a primary care provider, at the [facility] or [facility] or some options. The patient is aware that he has a 2- week supply of his usual medications, as well as the additional Eliquis for thrombosis risk reduction, and one further dose of Decadron. The patient is at high risk given age, comorbidities, and current presentation for recurrent admission either for this or related to the known systolic heart failure with reduced ejection fraction. Reviewed with patient this hospitalization, the importance of followup, and seek care precautions. He demonstrates understanding. TIME SPENT: Total time coordinating discharge is 35 minutes. Job ID: [id number] MTDD
[2020-01-15 14:54] VITALS: BP 115/77; TEMP 98.3
== END 2020-01-15 14:35 | disposition home or self-care (01) | DRG 177 ==
LOC: ERS 15:50 → 2SW 17:53 → T4-A 01-10 22:06
PROVIDERS: ADMIT Internal Medicine; ATTEND Internal Medicine
PROC: 8E0ZXY6 Isolation (ICD-10-PCS; principal; 2020-01-06)
DX: U07.1 COVID-19 (principal); J12.89 Other viral pneumonia; J96.01 Acute respiratory failure with hypoxia; I13.0 Hypertensive heart and chronic kidney disease with heart failure and stage 1 through stage 4 chronic kidney disease, or unspecified chronic kidney disease; I50.42 Chronic combined systolic (congestive) and diastolic (congestive) heart failure; N18.2 Chronic kidney disease, stage 2 (mild); E66.9 Obesity, unspecified; E78.00 Pure hypercholesterolemia, unspecified; F14.10 Cocaine abuse, uncomplicated; Z68.30 Body mass index [BMI] 30.0-30.9, adult
CPT/HCPCS: 36415; 71045; 80048; 80053; 80076; 82553; 82565; 82728; 82805; 83605; 83880; 84484; 85014; 85018; 85025; 85049; 85379; 85610; 86140; 87040; 93005; 93010; 96365; 96375; J0456; J0696; J1100; J1644; J1650; J2405; J8540

== ENCOUNTER 2020-06-01 12:19 | Emergency (ER) | payer OTHER, SELFPAY ==
--- NOTE | 2020-06-01 12:51 | RAD ---
PORTABLE CHEST 1 VIEW: Date: 06/01/2020 Time: 1239 hours HISTORY: Numbness in the left arm and leg. Dizziness. Hypertension. COMPARISON: 01/13/2020. FINDINGS: The heart size is borderline. The lungs are well expanded without lobar consolidation, pneumothoraces , blaine pulmonary edema, or pleural effusions. IMPRESSION: No acute process. POS: AH
--- NOTE | 2020-06-01 12:58 | CT ---
CT HEAD WITHOUT IV CONTRAST COMPARISON: None. HISTORY: Closed head trauma TECHNIQUE: Axial CT imaging at 5 mm intervals from vertex through skull base without contrast FINDINGS: There is no evidence of an acute infarction, hemorrhage, mass effect, or midline shift. The ventricul ar system is normal in size, shape, and position. Skull base has a normal CT appearance. Visualized paranasal sinuses are clear. Osseous structures appear intact. IMPRESSION: 1. No acute intracranial abnormality demonstrated.
[2020-06-01 13:12] LABS: #Lymphocytes 1.6 thou/uL (1.20-3.40); #Monocytes 0.6 thou/uL (0.11-0.59); %Basophils 0.6 % (0.0-1.0); %Eosinophils 0.9 % (0.0-10.0); %Lymphocytes 30.1 % (21.0-51.0); %Monocytes 10.7 % (0.0-10.0); %Neutrophils 57.7 % (42.0-75.0); Hemoglobin 14.5 g/dL (14.0-18.0); Mean Corpuscular HGB CONC 34.4 g/dL (32.0-36.0); Mean Corpuscular Hemoglobin 31.2 pg (27.0-31.0); Mean Corpuscular Volume 90.7 fL (78.0-98.0); Mean Platelet Volume 7.9 fL (7.4-10.4); Platelet Count 260 thou/uL (130-400); RBC Distribution Width 11.7 % (11.5-14.5); Red Blood Cell (RBC) Count 4.65 mill/uL (4.70-6.10); White Blood Cell (WBC) Count 5.2 thou/uL (4.8-10.8)
[2020-06-01 13:52] LABS: Albumin 4.2 g/dL (3.5-5.0)
[2020-06-01 13:53] LABS: Calcium 9.2 mg/dL (7.8-10.44); Chloride 108 mmol/L (98-107); Potassium 4.9 mmol/L (3.5-5.1); Sodium 143 mmol/L (136-145)
[2020-06-01 13:54] LABS: Globulin 3.2 g/dL (2.4-3.5); Glucose 95 mg/dL (70-105); Protein, Total 7.4 g/dL (6.0-8.3)
[2020-06-01 13:56] LABS: Anion Gap 19 mmol/L (10-20); Bilirubin, Total 0.7 mg/dL (0.2-1.2); Carbon Dioxide 21 mmol/L (22-29)
[2020-06-01 13:57] LABS: Alkaline Phosphatase 75 U/L (40-110); Calc. Creatinine Clearance 0 mL/min (70-130)
[2020-06-01 13:58] LABS: ALT (SGPT) 12 U/L (8-55); AST (SGOT) 19 U/L (5-34); BUN (Urea Nitrogen) 15 mg/dL (8.4-25.7)
== END 2020-06-01 14:55 ==
LOC: ERS 12:19
DX: S09.90XA Unspecified injury of head, initial encounter (principal); R20.2 Paresthesia of skin; E78.5 Hyperlipidemia, unspecified; E78.00 Pure hypercholesterolemia, unspecified; I11.0 Hypertensive heart disease with heart failure; I50.9 Heart failure, unspecified; Z79.899 Other long term (current) drug therapy; Y04.0XXA Assault by unarmed brawl or fight, initial encounter
CPT/HCPCS: 36415; 70450; 71045; 80053; 83880; 84484; 85025; 93005

== ENCOUNTER 2021-02-24 09:40 | Emergency (ER) | payer MEDICAID, OTHER ==
[2021-02-24 10:06] LABS: #Eosinphils 0.1 thou/uL (0.0-0.7); #Lymphocytes 1.9 thou/uL (1.20-3.40); #Monocytes 0.8 thou/uL (0.11-0.59); #Neutrophils 3.2 thou/uL (1.40-6.50); %Basophils 0.1 % (0.0-1.0); %Eosinophils 1.2 % (0.0-10.0); %Lymphocytes 32.4 % (21.0-51.0); %Monocytes 12.5 % (0.0-10.0); %Neutrophils 53.8 % (42.0-75.0); Hemoglobin 12.9 g/dL (14.0-18.0); Mean Corpuscular HGB CONC 33.6 g/dL (32.0-36.0); Mean Corpuscular Hemoglobin 31.3 pg (27.0-31.0); Mean Corpuscular Volume 93.1 fL (78.0-98.0); Mean Platelet Volume 8.3 fL (7.4-10.4); Platelet Count 321 thou/uL (130-400); RBC Distribution Width 13.3 % (11.5-14.5); Red Blood Cell (RBC) Count 4.13 mill/uL (4.70-6.10)
[2021-02-24 10:26] LABS: ALT (SGPT) 84 U/L (8-55); AST (SGOT) 50 U/L (5-34); Albumin 3.5 g/dL (3.5-5.0); Alkaline Phosphatase 87 U/L (40-110); Anion Gap 13 mmol/L (10-20); BUN (Urea Nitrogen) 16 mg/dL (8.4-25.7); Bilirubin, Total 0.9 mg/dL (0.2-1.2); Calc. Creatinine Clearance 0 mL/min (70-130); Carbon Dioxide 22 mmol/L (22-29); Chloride 109 mmol/L (98-107); Globulin 3.1 g/dL (2.4-3.5); Glucose 109 mg/dL (70-105); Potassium 4.6 mmol/L (3.5-5.1); Protein, Total 6.6 g/dL (6.0-8.3); Sodium 139 mmol/L (136-145)
[2021-02-24 10:48] LABS: CKMB 1.3 ng/mL (0-6.6)
[2021-02-24] MEDS ORDERED: Furosemide 40 MG/4 ML VIAL ONE (11:17)
[2021-02-24] MEDS ORDERED: Aspirin Chewable 81 MG TAB ONE (12:57)
== END 2021-02-24 12:28 ==
LOC: ERS 09:40 → EEVIPCON 09:40 → ERS 12:28
DX: I11.0 Hypertensive heart disease with heart failure (principal); I50.9 Heart failure, unspecified; E78.5 Hyperlipidemia, unspecified; E78.00 Pure hypercholesterolemia, unspecified
CPT/HCPCS: 71045; 80053; 82553; 83880; 84484; 85025; 93005; 96374; J1940

== ENCOUNTER 2023-05-23 05:11 | Observation (INO) | payer OTHER, SELFPAY ==
[2023-05-23 05:52] LABS: #Eosinphils 0.1 thou/uL (0.0-0.7); #Monocytes 0.8 thou/uL (0.11-0.59); #Neutrophils 2.6 thou/uL (1.40-6.50); %Basophils 0.6 % (0.0-1.0); %Eosinophils 1.3 % (0.0-10.0); %Lymphocytes 48.9 % (21.0-51.0); %Monocytes 11.3 % (0.0-10.0); %Neutrophils 37.6 % (42.0-75.0); Hematocrit 39.5 % (42.0-52.0); Hemoglobin 13.5 g/dL (14.0-18.0); Mean Corpuscular HGB CONC 34.2 g/dL (32.0-36.0); Mean Corpuscular Volume 90.6 fl (78.0-98.0); Mean Platelet Volume 10.3 fL (7.4-10.4); Platelet Count 275 10x3/uL (130-400); RBC Distribution Width 13.2 % (11.5-14.5); Red Blood Cell (RBC) Count 4.36 mill/uL (4.70-6.10); White Blood Cell (WBC) Count 6.9 10x3/uL (4.8-10.8)
[2023-05-23] MEDS ORDERED: Furosemide 40 MG/4 ML VIAL ONE (05:59)
[2023-05-23 06:23] LABS: Troponin I 0.042 ng/mL (< 0.028)
[2023-05-23 06:25] LABS: ALT (SGPT) 37 U/L (8-55); AST (SGOT) 38 U/L (5-34); Albumin 3.9 g/dL (3.5-5.0); Alkaline Phosphatase 79 U/L (40-110); Anion Gap 15 mmol/L (10-20); BUN (Urea Nitrogen) 21 mg/dL (8.4-25.7); Bilirubin, Total 0.5 mg/dL (0.2-1.2); Calc. Creatinine Clearance 0 mL/min (70-130); Calcium 8.9 mg/dL (7.8-10.44); Carbon Dioxide 19 mmol/L (22-29); Chloride 106 mmol/L (98-107); Estimated GFR 67; Globulin 3.1 g/dL (2.4-3.5); Glucose 239 mg/dL (70-105); Potassium 4.2 mmol/L (3.5-5.1); Sodium 136 mmol/L (136-145)
[2023-05-23] MEDS ORDERED: Magnesium 2 GM/50 ML BAG (IN WATER) ONE (07:43)
[2023-05-23] MEDS ORDERED: Aspirin Chewable 81 MG TAB ONE (07:43)
[2023-05-23 08:08] LABS: Lipase 9 U/L (8-78); Magnesium 2.2 mg/dL (1.6-2.6)
[2023-05-23 09:33] LABS: Troponin I 0.029 ng/mL (< 0.028)
[2023-05-23] MEDS ORDERED: Calcium Carbonate 500 MG ChewTAB PO PRN (10:37)
[2023-05-23] MEDS ORDERED: cloNIDine 0.1 MG TAB PO PRN (10:38)
[2023-05-23 11:32] VITALS: BMI 32.7
[2023-05-23] MEDS ORDERED: Iopamidol-370 76% 500 ML MDV (1 ML CHARGE) ONE (13:28)
[2023-05-23 13:29] LABS: Troponin I 0.039 ng/mL (< 0.028)
[2023-05-23] MEDS: Furosemide 40 MG/4 ML VIAL SLOW IVP SCH (15:16)
[2023-05-23] MEDS ORDERED: Carvedilol 3.125 MG TAB PO SCH (17:00)
[2023-05-23] MEDS: Heparin 5,000 UNITS/ML VIAL SC SCH (20:00)
[2023-05-23] MEDS: Famotidine 20 MG TAB PO SCH (20:00)
[2023-05-23 20:38] LABS: Amphetamine Not Detected (NotDetected); Barbiturates Screen Not Detected (NotDetected); Benzodiazepine Screen Not Detected (NotDetected); Cocaine Metabolite Screen Not Detected (NotDetected); Methadone Not Detected (NotDetected); Methamphetamine Not Detected (NotDetected); Opiate Screen Not Detected (NotDetected); Oxycodone Screen Not Detected (NotDetected); Phencyclidine (PCP) Not Detected (NotDetected); THC/Cannabinoid Screen Detected (NotDetected); Tricyclic Screen Not Detected (NotDetected)
[2023-05-23] MEDS: Acetaminophen 325 MG TAB PO PRN (23:02)
[2023-05-24 04:45] LABS: #Eosinphils 0.1 thou/uL (0.0-0.7); #Monocytes 0.9 thou/uL (0.11-0.59); %Basophils 0.6 % (0.0-1.0); %Eosinophils 1.3 % (0.0-10.0); %Lymphocytes 43.9 % (21.0-51.0); %Monocytes 12.7 % (0.0-10.0); %Neutrophils 41.1 % (42.0-75.0); Hematocrit 42.7 % (42.0-52.0); Hemoglobin 14.5 g/dL (14.0-18.0); Mean Corpuscular Hemoglobin 30.5 pg (27.0-31.0); Mean Corpuscular Volume 89.7 fl (78.0-98.0); Mean Platelet Volume 10.4 fL (7.4-10.4); Platelet Count 285 10x3/uL (130-400); RBC Distribution Width 13.2 % (11.5-14.5); Red Blood Cell (RBC) Count 4.76 mill/uL (4.70-6.10); White Blood Cell (WBC) Count 7.2 10x3/uL (4.8-10.8)
[2023-05-24] MEDS: Furosemide 40 MG/4 ML VIAL SLOW IVP SCH ×2 (05:20→14:53)
[2023-05-24 05:22] LABS: ALT (SGPT) 33 U/L (8-55); AST (SGOT) 23 U/L (5-34); Albumin 4.2 g/dL (3.5-5.0); Alkaline Phosphatase 73 U/L (40-110); Anion Gap 14 mmol/L (10-20); BUN (Urea Nitrogen) 19 mg/dL (8.4-25.7); Bilirubin, Total 0.6 mg/dL (0.2-1.2); Calc. Creatinine Clearance 83 mL/min (70-130); Calcium 9.5 mg/dL (7.8-10.44); Carbon Dioxide 27 mmol/L (22-29); Chloride 102 mmol/L (98-107); Estimated GFR 58; Globulin 3.2 g/dL (2.4-3.5); Glucose 176 mg/dL (70-105); Magnesium 2.1 mg/dL (1.6-2.6); Potassium 4.2 mmol/L (3.5-5.1); Protein, Total 7.4 g/dL (6.0-8.3); Sodium 139 mmol/L (136-145)
[2023-05-24] MEDS: Aspirin 81 mg Enteric Coated Tablet PO SCH (08:36)
[2023-05-24] MEDS: Famotidine 20 MG TAB PO SCH ×2 (08:37→20:23)
[2023-05-24] MEDS: Heparin 5,000 UNITS/ML VIAL SC SCH ×2 (08:37→20:24)
[2023-05-24] MEDS: Acetaminophen 325 MG TAB PO PRN ×2 (11:00→18:49)
[2023-05-24] MEDS ORDERED: BENZOCAINE/MENTHOL/ZINC CHLOR 5.1 GM TUBE TOP PRN (11:14)
[2023-05-24] MEDS: Carvedilol 6.25 MG TAB PO SCH (16:58)
[2023-05-25 05:54] LABS: #Eosinphils 0.1 thou/uL (0.0-0.7); #Monocytes 0.7 thou/uL (0.11-0.59); #Neutrophils 2.5 thou/uL (1.40-6.50); %Basophils 0.6 % (0.0-1.0); %Eosinophils 1.1 % (0.0-10.0); %Lymphocytes 47.5 % (21.0-51.0); %Monocytes 11.3 % (0.0-10.0); %Neutrophils 39.3 % (42.0-75.0); Hematocrit 43.5 % (42.0-52.0); Hemoglobin 15.1 g/dL (14.0-18.0); Mean Corpuscular HGB CONC 34.7 g/dL (32.0-36.0); Mean Corpuscular Hemoglobin 30.6 pg (27.0-31.0); Mean Corpuscular Volume 88.1 fl (78.0-98.0); Mean Platelet Volume 10.9 fL (7.4-10.4); Platelet Count 298 10x3/uL (130-400); RBC Distribution Width 13.1 % (11.5-14.5); Red Blood Cell (RBC) Count 4.94 mill/uL (4.70-6.10); White Blood Cell (WBC) Count 6.4 10x3/uL (4.8-10.8)
[2023-05-25 06:22] LABS: Anion Gap 16 mmol/L (10-20); BUN (Urea Nitrogen) 23 mg/dL (8.4-25.7); Calc. Creatinine Clearance 88 mL/min (70-130); Calcium 9.5 mg/dL (7.8-10.44); Carbon Dioxide 24 mmol/L (22-29); Chloride 102 mmol/L (98-107); Estimated GFR 64; Glucose 184 mg/dL (70-105); Magnesium 2.1 mg/dL (1.6-2.6); Sodium 138 mmol/L (136-145)
[2023-05-25] MEDS ORDERED: Furosemide 40 MG/4 ML VIAL SLOW IVP SCH (09:00)
[2023-05-25 09:21] VITALS: TEMP 98
[2023-05-25] MEDS: Heparin 5,000 UNITS/ML VIAL SC SCH (09:22)
[2023-05-25] MEDS: Aspirin 81 mg Enteric Coated Tablet PO SCH (09:22)
[2023-05-25] MEDS: Carvedilol 6.25 MG TAB PO SCH (09:22)
[2023-05-25] MEDS: Famotidine 20 MG TAB PO SCH (09:22)
[2023-05-25 11:09] VITALS: BP 126/80
== END 2023-05-25 12:58 | disposition home or self-care (01) ==
LOC: ERS 05:11 → 2NO 08:34
PROVIDERS: ADMIT Internal Medicine; ATTEND Nurse Practitioner Family
PROC: B246ZZZ Ultrasonography of Right and Left Heart (ICD-10-PCS; principal; 2023-05-23)
DX: R06.02 Shortness of breath (principal); I42.8 Other cardiomyopathies; F14.10 Cocaine abuse, uncomplicated; I13.0 Hypertensive heart and chronic kidney disease with heart failure and stage 1 through stage 4 chronic kidney disease, or unspecified chronic kidney disease; N18.2 Chronic kidney disease, stage 2 (mild); I50.40 Unspecified combined systolic (congestive) and diastolic (congestive) heart failure; D63.1 Anemia in chronic kidney disease; I82.409 Acute embolism and thrombosis of unspecified deep veins of unspecified lower extremity; F12.10 Cannabis abuse, uncomplicated; Z95.810 Presence of automatic (implantable) cardiac defibrillator; Z98.890 Other specified postprocedural states; Z79.82 Long term (current) use of aspirin; Z79.899 Other long term (current) drug therapy
CPT/HCPCS: 36415; 71045; 71275; 80048; 80053; 80306; 83690; 83735; 83880; 84484; 85025; 93005; 93306; 93798; 96365; 96372; 96375; 96376; G0378; J1644; J1940; J3475; Q9967

== ENCOUNTER 2023-06-14 10:22 | Emergency (ER) | payer SELFPAY ==
[2023-06-14] MEDS ORDERED: Nitroglycerin 2% Ointment 1 INCH/1 GM Packet ONE (10:44)
[2023-06-14] MEDS ORDERED: Furosemide 40 MG/4 ML VIAL ONE (10:44)
[2023-06-14] MEDS ORDERED: Aspirin Chewable 81 MG TAB ONE (10:45)
[2023-06-14 10:59] LABS: #Eosinphils 0.1 thou/uL (0.0-0.7); #Monocytes 0.6 thou/uL (0.11-0.59); #Neutrophils 3.1 thou/uL (1.40-6.50); %Basophils 0.5 % (0.0-1.0); %Eosinophils 1.2 % (0.0-10.0); %Lymphocytes 36.6 % (21.0-51.0); %Monocytes 10.1 % (0.0-10.0); %Neutrophils 51.4 % (42.0-75.0); Hematocrit 40.1 % (42.0-52.0); Hemoglobin 13.6 g/dL (14.0-18.0); Mean Corpuscular HGB CONC 33.9 g/dL (32.0-36.0); Mean Corpuscular Hemoglobin 30.9 pg (27.0-31.0); Mean Corpuscular Volume 91.1 fl (78.0-98.0); Mean Platelet Volume 10.9 fL (7.4-10.4); Platelet Count 237 10x3/uL (130-400); RBC Distribution Width 13.6 % (11.5-14.5)
[2023-06-14 11:21] LABS: Acetaminophen Less than 10 mcg/mL (10.0-30.0); Alcohol Less than 10.0 mg/dL (Less than 10); Salicylate Less than 8.0 mg/dL (15.0-30.0)
[2023-06-14 11:22] LABS: ALT (SGPT) 27 U/L (8-55); AST (SGOT) 21 U/L (5-34); Alkaline Phosphatase 74 U/L (40-110); Anion Gap 14 mmol/L (10-20); BUN (Urea Nitrogen) 19 mg/dL (8.4-25.7); Bilirubin, Total 0.7 mg/dL (0.2-1.2); Calc. Creatinine Clearance 0 mL/min (70-130); Calcium 8.8 mg/dL (7.8-10.44); Carbon Dioxide 21 mmol/L (22-29); Chloride 110 mmol/L (98-107); Estimated GFR 71; Globulin 2.8 g/dL (2.4-3.5); Glucose 158 mg/dL (70-105); Lipase 13 U/L (8-78); Potassium 4.4 mmol/L (3.5-5.1); Protein, Total 6.8 g/dL (6.0-8.3); Sodium 141 mmol/L (136-145)
[2023-06-14 11:36] LABS: Troponin I 0.015 ng/mL (< 0.028)
[2023-06-14] MEDS ORDERED: Magnesium 2 GM/50 ML BAG (IN WATER) ONE (11:49)
[2023-06-14 12:51] LABS: Bacteria/HPF None Seen HPF (None Seen); Bilirubin Negative (Negative); Blood, Urine Negative (Negative); CAUTI Indications for Culture Pelvic or flank pain; Clarity Clear (Clear); Glucose, Urine (Dipstick) Normal (Negative); Ketone, Urine Negative (Negative); Leukocyte Negative Leu/uL (Negative); Nitrite Negative (Negative); Protein, Urine (Dipstick) Negative (Neg-Trace); RBC/HPF None Seen HPF (0-3); Specific Gravity, Urine 1.009 (1.002-1.036); Squamous Epithelial None Seen HPF (0-3); Urobilinogen Normal mg/dL (Less than 2); WBC/HPF None Seen HPF (0-3); pH, Urine 5.5 (5.0-9.0)
[2023-06-14 12:53] LABS: Urine Culture Reflex No No
[2023-06-14 12:54] LABS: Amphetamine Not Detected (NotDetected); Barbiturates Screen Not Detected (NotDetected); Benzodiazepine Screen Not Detected (NotDetected); Cocaine Metabolite Screen Not Detected (NotDetected); Methadone Not Detected (NotDetected); Methamphetamine Not Detected (NotDetected); Opiate Screen Not Detected (NotDetected); Oxycodone Screen Not Detected (NotDetected); Phencyclidine (PCP) Not Detected (NotDetected); THC/Cannabinoid Screen Detected (NotDetected); Tricyclic Screen Not Detected (NotDetected)
== END 2023-06-14 13:15 | disposition home or self-care (01) ==
LOC: ERS 10:22
DX: I11.0 Hypertensive heart disease with heart failure (principal); I50.9 Heart failure, unspecified
CPT/HCPCS: 36415; 71045; 80053; 80306; 80307; 81001; 83690; 83880; 84484; 85025; 93005; 96365; 96375; J1940; J3475

== ENCOUNTER 2023-06-18 10:21 | Emergency (ER) | payer SELFPAY | END 2023-06-18 11:36 | disposition home or self-care (01) | LOC: ERS 10:21 | DX: H92.02 Otalgia, left ear (principal); I11.0 Hypertensive heart disease with heart failure; I50.9 Heart failure, unspecified; Z79.82 Long term (current) use of aspirin; Z79.899 Other long term (current) drug therapy | CPT/HCPCS: 99282 ==

== ENCOUNTER 2023-08-27 13:11 | Emergency (ER) | payer SELFPAY | END 2023-08-27 13:39 | disposition home or self-care (01) | LOC: ERS 13:11 | DX: Z76.0 Encounter for issue of repeat prescription (principal); I11.0 Hypertensive heart disease with heart failure; I50.9 Heart failure, unspecified; E11.9 Type 2 diabetes mellitus without complications; Z79.899 Other long term (current) drug therapy | CPT/HCPCS: 99281 ==

== ENCOUNTER 2023-11-28 08:05 | Emergency (ER) | payer SELFPAY ==
[2023-11-28] MEDS ORDERED: Aspirin Chewable 81 MG TAB ONE (09:29)
[2023-11-28 10:34] LABS: #Basophils 0.04 10x3/uL (0.0-0.2); %Basophils 0.6 % (0.0-1.0); %Eosinophils 0.9 % (0.0-10.0); %Lymphocytes 39.4 % (21.0-51.0); %Monocytes 10.3 % (0.0-10.0); %Neutrophils 48.5 % (42.0-75.0); Hematocrit 40.2 % (42.0-52.0); Hemoglobin 14.1 g/dL (14.0-18.0); Mean Corpuscular HGB CONC 35.1 g/dL (32.0-36.0); Mean Corpuscular Hemoglobin 30.7 pg (27.0-31.0); Mean Corpuscular Volume 87.6 fL (78.0-98.0); Mean Platelet Volume 10.4 fL (7.4-10.4); Platelet Count 264 10x3/uL (130-400); RBC Distribution Width 13.4 % (11.5-14.5); Red Blood Cell (RBC) Count 4.59 mill/uL (4.70-6.10)
[2023-11-28 10:48] LABS: ALT (SGPT) 16 U/L (8-55); AST (SGOT) 18 U/L (5-34); Albumin 3.8 g/dL (3.4-4.8); Alkaline Phosphatase 68 U/L (40-110); Anion Gap 15 mmol/L (10-20); BUN (Urea Nitrogen) 23 mg/dL (8.4-25.7); Bilirubin, Total 0.6 mg/dL (0.2-1.2); Calc. Creatinine Clearance 0 mL/min (70-130); Calcium 9.5 mg/dL (7.8-10.44); Carbon Dioxide 21 mmol/L (23-31); Chloride 109 mmol/L (98-107); Estimated GFR 66; Globulin 3.5 g/dL (2.4-3.5); Glucose 201 mg/dL (80-115); Magnesium 1.9 mg/dL (1.6-2.6); Potassium 4.3 mmol/L (3.5-5.1); Protein, Total 7.3 g/dL (5.8-8.1); Sodium 141 mmol/L (136-145)
[2023-11-28 11:30] LABS: Troponin I 0.026 ng/mL (< 0.028)
[2023-11-28] MEDS ORDERED: Furosemide 40 MG (4 mL) VIAL ONE (11:49)
== END 2023-11-28 12:00 | disposition home or self-care (01) ==
LOC: ERS 08:05
DX: I11.0 Hypertensive heart disease with heart failure (principal); I50.9 Heart failure, unspecified; E11.65 Type 2 diabetes mellitus with hyperglycemia; Z76.0 Encounter for issue of repeat prescription; Z79.899 Other long term (current) drug therapy
CPT/HCPCS: 36415; 71045; 80053; 83735; 83880; 84484; 85025; 93005; 96374; J1940

== ENCOUNTER 2023-12-12 12:28 | Outpatient (CLI) | payer OTHER | END 2023-12-12 12:29 | disposition home or self-care (01) | LOC: BICRAD 12:28 | PROVIDERS: ATTEND Preventive Medicine Occupational Medicine | DX: I50.9 Heart failure, unspecified (principal); I51.7 Cardiomegaly | CPT/HCPCS: 71046 ==

== ENCOUNTER 2024-03-30 15:53 | Emergency (ER) | payer SELFPAY ==
[2024-03-30 16:30] LABS: #Basophils 0.04 10x3/uL (0.0-0.2); %Basophils 0.6 % (0.0-1.0); %Eosinophils 0.6 % (0.0-10.0); %Lymphocytes 38.5 % (21.0-51.0); %Monocytes 11.4 % (0.0-10.0); %Neutrophils 48.8 % (42.0-75.0); Hematocrit 41.2 % (42.0-52.0); Hemoglobin 14.3 g/dL (14.0-18.0); Mean Corpuscular HGB CONC 34.7 g/dL (32.0-36.0); Mean Corpuscular Hemoglobin 30.2 pg (27.0-31.0); Mean Corpuscular Volume 87.1 fL (78.0-98.0); Mean Platelet Volume 10.1 fL (7.4-10.4); Platelet Count 289 10x3/uL (130-400); RBC Distribution Width 12.9 % (11.5-14.5); Red Blood Cell (RBC) Count 4.73 mill/uL (4.70-6.10)
[2024-03-30 16:45] LABS: ALT (SGPT) 22 U/L (8-55); AST (SGOT) 21 U/L (5-34); Alkaline Phosphatase 75 U/L (40-110); Anion Gap 12 mmol/L (10-20); BUN (Urea Nitrogen) 19 mg/dL (8.4-25.7); Bilirubin, Total 0.9 mg/dL (0.2-1.2); Calc. Creatinine Clearance 0 mL/min (70-130); Calcium 9.5 mg/dL (7.8-10.44); Carbon Dioxide 22 mmol/L (23-31); Chloride 111 mmol/L (98-107); Estimated GFR 68; Globulin 3.5 g/dL (2.4-3.5); Glucose 117 mg/dL (80-115); Potassium 4.4 mmol/L (3.5-5.1); Protein, Total 7.5 g/dL (5.8-8.1); Sodium 141 mmol/L (136-145)
[2024-03-30 16:50] LABS: Troponin I 0.029 ng/mL (< 0.028)
== END 2024-03-30 19:07 | disposition home or self-care (01) ==
LOC: ERS 15:53
DX: I11.0 Hypertensive heart disease with heart failure (principal); I50.9 Heart failure, unspecified
CPT/HCPCS: 36415; 71045; 80053; 83880; 84484; 85025; 93005

== ENCOUNTER 2024-07-12 15:22 | Inpatient (IN) | payer OTHER ==
[2024-07-12 16:13] LABS: #Basophils 0.04 10x3/uL (0.0-0.2); %Basophils 0.7 % (0.0-1.0); %Eosinophils 0.9 % (0.0-10.0); %Lymphocytes 35.3 % (21.0-51.0); %Monocytes 9.7 % (0.0-10.0); Hematocrit 42.1 % (42.0-52.0); Hemoglobin 14.3 g/dL (14.0-18.0); Mean Corpuscular Hemoglobin 29.9 pg (27.0-31.0); Mean Corpuscular Volume 88.1 fL (78.0-98.0); Mean Platelet Volume 10.9 fL (7.4-10.4); Platelet Count 269 10x3/uL (130-400); RBC Distribution Width 13.6 % (11.5-14.5); Red Blood Cell (RBC) Count 4.78 mill/uL (4.70-6.10)
[2024-07-12 16:34] LABS: ALT (SGPT) 63 U/L (8-55); AST (SGOT) 34 U/L (5-34); Albumin 3.6 g/dL (3.4-4.8); Alkaline Phosphatase 87 U/L (40-110); Anion Gap 14 mmol/L (10-20); BUN (Urea Nitrogen) 23 mg/dL (8.4-25.7); Bilirubin, Total 0.8 mg/dL (0.2-1.2); Calc. Creatinine Clearance 0 mL/min (70-130); Calcium 9.2 mg/dL (7.8-10.44); Carbon Dioxide 25 mmol/L (23-31); Chloride 105 mmol/L (98-107); Estimated GFR 67; Globulin 3.7 g/dL (2.4-3.5); Glucose 347 mg/dL (80-115); Magnesium 1.8 mg/dL (1.6-2.6); Potassium 4.7 mmol/L (3.5-5.1); Protein, Total 7.3 g/dL (5.8-8.1); Sodium 139 mmol/L (136-145)
[2024-07-12 16:42] LABS: Troponin I 0.253 ng/mL (< 0.028)
[2024-07-12] MEDS ORDERED: Nitroglycerin 2% Ointment 1 INCH/1 GM Packet ONE (16:44)
[2024-07-12] MEDS ORDERED: Furosemide 100 MG (10 mL) VIAL ONE (16:45)
[2024-07-12] MEDS ORDERED: Acetaminophen 650 MG Suppository PR PRN (18:06)
[2024-07-12] MEDS ORDERED: Acetaminophen 325 MG TAB PO PRN (18:06)
[2024-07-12] MEDS ORDERED: Ondansetron ODT 4 MG TAB PO PRN (18:06)
[2024-07-12] MEDS ORDERED: Ondansetron PF 4 MG/2 ML Vial IVP PRN (18:06)
[2024-07-12] MEDS ORDERED: Dextrose 5% in Water 1,000 ML IV PRN (18:08)
[2024-07-12] MEDS ORDERED: Dextrose 50% Abboject 50 ML SYRINGE SLOW IVP PRN (18:08)
[2024-07-12] MEDS ORDERED: Glucagon 1 MG/ML KIT IM PRN (18:08)
[2024-07-12] MEDS ORDERED: Electrolyte Replacement Protocol FS SCH (19:30)
[2024-07-12 20:12] LABS: Critical Call Chem Troponin I RESULT DECREASING; Troponin I 0.225 ng/mL (< 0.028)
[2024-07-12] MEDS: Famotidine 20 MG TAB PO SCH (21:07)
[2024-07-12] MEDS: Insulin Lispro 100 UNIT/ML 10 ML VIAL SC PRN (21:07)
[2024-07-12 21:09] VITALS: BMI 31.8
[2024-07-12] MEDS ORDERED: Nitroglycerin 0.4 MG TAB (25 Tab Bottle) SL PRN (21:11)
[2024-07-12 21:25] LABS: Amphetamine Not Detected (NotDetected); Barbiturates Screen Not Detected (NotDetected); Benzodiazepine Screen Not Detected (NotDetected); Cocaine Metabolite Screen Not Detected (NotDetected); Methadone Not Detected (NotDetected); Methamphetamine Not Detected (NotDetected); Opiate Screen Not Detected (NotDetected); Oxycodone Screen Not Detected (NotDetected); Phencyclidine (PCP) Not Detected (NotDetected); THC/Cannabinoid Screen Not Detected (NotDetected); Tricyclic Screen Not Detected (NotDetected)
[2024-07-12] MEDS: Magnesium 2 GM/50 ML(in water) 2 GM in Premix 1 BAG IVPB SCH (21:36)
[2024-07-12] MEDS: Aspirin 325 MG TAB PO SCH (21:58)
[2024-07-12 22:41] LABS: Troponin I 0.237 ng/mL (< 0.028)
[2024-07-12] MEDS: Enoxaparin 100 MG (1 mL) SYRINGE SC SCH (23:35)
[2024-07-13 04:59] LABS: #Basophils 0.04 10x3/uL (0.0-0.2); %Basophils 0.7 % (0.0-1.0); %Eosinophils 1.2 % (0.0-10.0); %Lymphocytes 47.2 % (21.0-51.0); %Monocytes 10.8 % (0.0-10.0); %Neutrophils 39.9 % (42.0-75.0); Hematocrit 40.8 % (42.0-52.0); Mean Corpuscular HGB CONC 34.3 g/dL (32.0-36.0); Mean Corpuscular Hemoglobin 30.2 pg (27.0-31.0); Mean Corpuscular Volume 87.9 fL (78.0-98.0); Mean Platelet Volume 10.4 fL (7.4-10.4); Platelet Count 262 10x3/uL (130-400); RBC Distribution Width 13.5 % (11.5-14.5); Red Blood Cell (RBC) Count 4.64 mill/uL (4.70-6.10)
[2024-07-13 05:13] LABS: Hemoglobin A1c 8.8 % (4.0-6.0)
[2024-07-13 05:18] LABS: Anion Gap 13 mmol/L (10-20); BUN (Urea Nitrogen) 21 mg/dL (8.4-25.7); Calc. Creatinine Clearance 105 mL/min (70-130); Calcium 9.1 mg/dL (7.8-10.44); Carbon Dioxide 24 mmol/L (23-31); Cardiac Risk 3.3 (Less than 4.5); Chloride 107 mmol/L (98-107); Cholesterol 219 mg/dl (< 200 Desired); Estimated GFR 81; Glucose 228 mg/dL (80-115); HDL Cholesterol 67 mg/dL (>60 Neg Risk); LDL Cholesterol, Calculated 137 mg/dL; Magnesium 2.1 mg/dL (1.6-2.6); Potassium 4.2 mmol/L (3.5-5.1); Sodium 140 mmol/L (136-145); Triglycerides 74 mg/dL (Less than 150)
[2024-07-13 05:29] LABS: Troponin I 0.278 ng/mL (< 0.028)
[2024-07-13] MEDS: Furosemide 40 MG (4 mL) VIAL SLOW IVP SCH (05:48)
[2024-07-13] MEDS: Aspirin 81 mg Enteric Coated Tablet PO SCH (10:04)
[2024-07-13] MEDS: Lisinopril 5 MG TAB PO SCH (10:05)
[2024-07-13] MEDS: Enoxaparin 40 MG (0.4 mL) SYRINGE SC SCH (10:52)
[2024-07-13] MEDS: metFORMIN 500 MG TAB PO SCH (10:52)
[2024-07-13] MEDS: Insulin Lispro 100 UNIT/ML 10 ML VIAL SC PRN (12:09)
[2024-07-13] MEDS ORDERED: hydrALAZINE 20 MG/ML VIAL SLOW IVP PRN (16:17)
[2024-07-14] MEDS: Dapagliflozin Propanediol 10 MG TAB PO SCH (09:47)
[2024-07-14] MEDS: Metoprolol Succinate XL 25 MG ER.TAB PO SCH (09:47)
[2024-07-14 09:49] LABS: %Eosinophils 1.1 % (0.0-10.0); Hemoglobin 15.7 g/dL (14.0-18.0); Mean Corpuscular Hemoglobin 29.7 pg (27.0-31.0); Red Blood Cell (RBC) Count 5.28 mill/uL (4.70-6.10)
[2024-07-14 10:06] LABS: ALT (SGPT) 43 U/L (Less than 45); AST (SGOT) 30 U/L (11-34); Albumin 3.9 g/dL (3.1-4.5); Alkaline Phosphatase 86 U/L (40-110); Anion Gap 14 mmol/L (10-20); BUN (Urea Nitrogen) 24 mg/dL (8.4-25.7); Bilirubin, Total 0.9 mg/dL (0.3-1.2); Calc. Creatinine Clearance 80 mL/min (70-130); Calcium 9.7 mg/dL (7.8-10.44); Carbon Dioxide 27 mmol/L (23-31); Chloride 104 mmol/L (98-107); Estimated GFR 60; Globulin 3.6 g/dL (2.4-3.5); Glucose 199 mg/dL (80-115); Potassium 4.2 mmol/L (3.5-5.1); Protein, Total 7.5 g/dL (5.8-8.1); Sodium 141 mmol/L (136-145)
[2024-07-14 10:38] LABS: #Basophils 0.03 10x3/uL (0.0-0.2); %Basophils 0.6 % (0.0-1.0); %Lymphocytes 43.8 % (21.0-51.0); %Monocytes 11.9 % (0.0-10.0); %Neutrophils 42.4 % (42.0-75.0); Hematocrit 46.7 % (42.0-52.0); Mean Corpuscular HGB CONC 33.6 g/dL (32.0-36.0); Mean Corpuscular Volume 88.4 fL (78.0-98.0); Mean Platelet Volume 10.7 fL (7.4-10.4); Platelet Count 311 10x3/uL (130-400); RBC Distribution Width 13.6 % (11.5-14.5)
[2024-07-14] MEDS: Sacubitril 24MG/Valsartan 26 MG TAB PO SCH (20:11)
[2024-07-15 05:34] LABS: #Basophils 0.04 10x3/uL (0.0-0.2); %Basophils 0.7 % (0.0-1.0); %Eosinophils 1.4 % (0.0-10.0); %Lymphocytes 43.6 % (21.0-51.0); %Monocytes 12.2 % (0.0-10.0); %Neutrophils 41.9 % (42.0-75.0); Hematocrit 46.4 % (42.0-52.0); Mean Corpuscular HGB CONC 34.5 g/dL (32.0-36.0); Mean Corpuscular Hemoglobin 30.1 pg (27.0-31.0); Mean Corpuscular Volume 87.2 fL (78.0-98.0); Mean Platelet Volume 10.6 fL (7.4-10.4); Platelet Count 301 10x3/uL (130-400); RBC Distribution Width 13.5 % (11.5-14.5); Red Blood Cell (RBC) Count 5.32 mill/uL (4.70-6.10)
[2024-07-15 05:49] LABS: ALT (SGPT) 38 U/L (Less than 45); AST (SGOT) 29 U/L (11-34); Albumin 3.5 g/dL (3.1-4.5); Alkaline Phosphatase 83 U/L (40-110); Anion Gap 15 mmol/L (10-20); BUN (Urea Nitrogen) 26 mg/dL (8.4-25.7); Bilirubin, Total 0.7 mg/dL (0.3-1.2); Calc. Creatinine Clearance 77 mL/min (70-130); Calcium 9.6 mg/dL (7.8-10.44); Carbon Dioxide 27 mmol/L (23-31); Chloride 105 mmol/L (98-107); Estimated GFR 57; Globulin 3.7 g/dL (2.4-3.5); Glucose 276 mg/dL (80-115); Potassium 4.5 mmol/L (3.5-5.1); Protein, Total 7.2 g/dL (5.8-8.1); Sodium 142 mmol/L (136-145)
[2024-07-15] MEDS: Furosemide 40 MG TAB PO SCH (08:07)
[2024-07-15 13:17] VITALS: BP 136/82; TEMP 97
== END 2024-07-15 15:39 | disposition home or self-care (01) | DRG 280 ==
LOC: ERS 15:22 → OBS 17:42 → OBSVTOIN 07-13 16:05
PROVIDERS: ADMIT Student in an Organized Health Care Education/Training Program; ATTEND Internal Medicine
DX: I13.0 Hypertensive heart and chronic kidney disease with heart failure and stage 1 through stage 4 chronic kidney disease, or unspecified chronic kidney disease (principal); I50.43 Acute on chronic combined systolic (congestive) and diastolic (congestive) heart failure; I21.4 Non-ST elevation (NSTEMI) myocardial infarction; E11.22 Type 2 diabetes mellitus with diabetic chronic kidney disease; E11.65 Type 2 diabetes mellitus with hyperglycemia; N18.2 Chronic kidney disease, stage 2 (mild); I42.0 Dilated cardiomyopathy; D63.8 Anemia in other chronic diseases classified elsewhere; F12.90 Cannabis use, unspecified, uncomplicated; Z91.010 Allergy to peanuts; Z98.890 Other specified postprocedural states; Z91.148 Patient's other noncompliance with medication regimen for other reason; Z71.6 Tobacco abuse counseling
CPT/HCPCS: 36415; 36416; 71045; 80048; 80053; 80061; 80306; 83036; 83735; 83880; 84443; 84484; 85025; 93005; 93306; 93798; 96372; 96374; 96375; 96376; G0378; J1650; J1815; J1940; J3475

== ENCOUNTER 2025-02-07 04:47 | Inpatient (IN) | payer OTHER ==
[2025-02-07 05:22] LABS: Actual Bicarbonate (HCO3v) 22.8 mEq/L (22-28); Base Excess -2.0 mEq/L (-2.0 to +3.0); Calcium, Ionized (venous) 1.13 mmol/L (1.16-1.32); Chloride (VBG) 108 mmol/L (98-106); Hematocrit-VBG 42 % (42.0-52.0); Hemoglobin (Hb) 14.4 g/dL (13.1-17.2); Potassium (VBG) 3.59 mmol/L (3.70-5.30); Sodium 141 mmol/L (133-146)
[2025-02-07 05:26] LABS: #Basophils 0.04 10x3/uL (0.0-0.2); #Eosinophils 0.10 10x3/uL (0.0-0.7); #Monocytes 0.79 10x3/uL (0.11-0.59); #Neutrophils 3.97 10x3/uL (1.40-6.50); %Basophils 0.6 % (0.0-1.0); %Eosinophils 1.4 % (0.0-10.0); %Lymphocytes 28.9 % (21.0-51.0); %Monocytes 11.4 % (0.0-10.0); %Neutrophils 57.4 % (42.0-75.0); Hematocrit 39.4 % (42.0-52.0); Hemoglobin 13.3 g/dL (14.0-18.0); Mean Corpuscular Hemoglobin 30.8 pg (27.0-31.0); Mean Corpuscular Volume 91.2 fL (78.0-98.0); Platelet Count 241 10x3/uL (130-400); Red Blood Cell (RBC) Count 4.32 mill/uL (4.70-6.10); White Blood Cell (WBC) Count 6.92 10x3/uL (4.8-10.8)
[2025-02-07 05:41] LABS: ALT (SGPT) 33 U/L (Less than 45); AST (SGOT) 39 U/L (11-34); Albumin 3.1 g/dL (3.1-4.5); Alkaline Phosphatase 89 U/L (40-110); Anion Gap 13 mmol/L (10-20); BUN (Urea Nitrogen) 21 mg/dL (8.4-25.7); Bilirubin, Total 0.3 mg/dL (0.3-1.2); Calc. Creatinine Clearance 0 mL/min (70-130); Calcium 8.2 mg/dL (7.8-10.44); Carbon Dioxide 22 mmol/L (23-31); Chloride 112 mmol/L (98-107); Globulin 2.7 g/dL (2.4-3.5); Glucose 177 mg/dL (80-115); Potassium 3.6 mmol/L (3.5-5.1); Sodium 143 mmol/L (136-145)
[2025-02-07] MEDS ORDERED: Furosemide 40 MG (4 mL) VIAL ONE (06:13)
== END 2025-02-07 09:55 | disposition left against medical advice (07) | DRG 291 ==
LOC: ERS 04:47 → ERHOLD 09:09
PROVIDERS: ADMIT Family Medicine; ATTEND Family Medicine
DX: I11.0 Hypertensive heart disease with heart failure (principal); I50.23 Acute on chronic systolic (congestive) heart failure; J18.9 Pneumonia, unspecified organism; J44.1 Chronic obstructive pulmonary disease with (acute) exacerbation; Z53.29 Procedure and treatment not carried out because of patient's decision for other reasons; E78.00 Pure hypercholesterolemia, unspecified; F12.10 Cannabis abuse, uncomplicated; Z91.010 Allergy to peanuts
CPT/HCPCS: 36415; 71045; 80053; 82805; 83880; 84484; 85025; 87428; 93005; 96374; J1940